=== PATIENT | female | born 1950 | race Caucasian/White ===

== ENCOUNTER → 2016-06-20 | Outpatient (CLI) | payer MEDICARE ==
--- NOTE | 2016-06-20 10:06 | CT ---
EXAMINATION TYPE: CT sinus wo con DATE OF EXAM: 06/20/2016 10:02 AM COMPARISON: 08/06/2014 HISTORY: Patient having sinus trouble CT DLP: 648.[address] of the paranasal sinuses was performed in the axial and coronal planes. Bone and soft tissue settings are submitted. The paranasal sinuses demonstrate normal aeration and development. Minimal mucosal thickening at the base of the right maxillary sinus. Remaining sinuses are well-aerat ed. Postoperative changes of medial right maxillary antrectomy. The osteal meatal units are patent bilaterally. The nasal septum is deviated from right to left. No bony destructive changes are seen within the field of view. IMPRESSION: 1. Minimal mucosal thickening at the base of the right maxillary sinus. 2. Nasal septal deviation from right to left.
== END | disposition home or self-care (01) ==
LOC: RADCTMAIN 09:24
PROVIDERS: ATTEND Otolaryngology
DX: J34.89 Other specified disorders of nose and nasal sinuses (principal); J34.2 Deviated nasal septum; J32.9 Chronic sinusitis, unspecified
CPT/HCPCS: 70486

== ENCOUNTER → 2017-10-15 | Outpatient (CLI) | payer MEDICARE ==
--- NOTE | 2017-10-15 18:47 | BD ---
EXAMINATION TYPE: Axial Bone Density DATE OF EXAM: 10/15/2017 COMPARISON: 06/21/2005 CLINICAL HISTORY: 67-year-old female postmenopausal screening without HRT Height: 65.5 IN Weight: 121 LBS FRAX RISK QUESTIONS: Secondary Osteoporosis: 3. Menopause before 45: YES AGE 45 Current Tobacco Use: YES RISK FACTORS HISTORY OF: Surgery to Spine: L2-L3 When: 20 YEARS AGO Active: YES Postmenopausal woman: AGE 45 MEDICATIONS: Additional Medications: XANAX EXAM MEASUREMENTS: PT STATES SHE HAD SURGERY ON HER DISC 20+ YEARS AGO Bone mineral densitometry was performed using the youwho System. Bone mineral density as measured about the Lumbar spine is: ----- L1-L4(G/cm2): 1.429 T Score Values are as follows: ----- L2: 1.5 ----- L3: 2.4 ----- L4: 3.0 ----- L1-L4: 2.1 Bone mineral density has: Decreased -20.6% since study of: 06/21/2005 Bone mineral density about the R hip (g/cm2): 0.870 Bone mineral density about the L hip (g/cm2): 0.874 T Score values are as follows: -----R Neck: -1.2 -----L Neck: -1.2 -----R Total: -1.5 -----L Total: -1.1 Bone mineral density has: Decreased -14.6% since study of: 07/24/2008 IMPRESSION: Osteopenia (T Score between -2.5 and -1). There is slightly increased risk of fracture and the patient may be considered for treatment. Re-Screen 2-5 years. NOTE: T-SCORE=SD OF THE YOUNG ADULT MEAN.
--- NOTE | 2017-10-17 13:40 | MM ---
Reason for exam: screening (asymptomatic). Last mammogram was performed 1 year and 9 months ago. History: Patient is postmenopausal. Family history of breast cancer in mother at age 57. Excisional biopsy of both breasts. Excisional biopsy of the left breast. Excisional biopsy of the right breast. Physical Findings: A clinical breast exam by your physician is recommended on an annual basis and results should be correlated with mammographic findings. MG 3D Screening Mammo W/Cad Bilateral CC and MLO view(s) were taken. Prior study comparison: January 07, 2016, bilateral MG screening mammo w CAD. August 06, 2014, bilateral MG screening mammo w CAD. The breast tissue is extremely dense which could obscure a lesion on mammography. No significant changes when compared with prior studies. ASSESSMENT: Negative, BI-RAD 1 RECOMMENDATION: Routine screening mammogram of both breasts in 1 year. Patient should continue monthly self breast exams. A negative report should not preclude additional follow up of suspicious palpable abnormalities.
== END | disposition home or self-care (01) ==
LOC: RADMAMWWP 15:25
PROVIDERS: ATTEND Family Medicine
DX: Z12.31 Encounter for screening mammogram for malignant neoplasm of breast (principal); M85.80 Other specified disorders of bone density and structure, unspecified site; Z78.0 Asymptomatic menopausal state
CPT/HCPCS: 77063; 77067; 77080

== ENCOUNTER 2018-10-04 19:39 | Emergency (ER) | payer MEDICARE ==
[2018-10-04 20:14] VITALS: TEMP 98.3
[2018-10-04] MEDS ORDERED: SODIUM CHLORIDE 0.9% 1,000 ML IV STA ×2 (20:56)
--- NOTE | 2018-10-04 21:00 | ED ---
Arrhythmia/Palpitations HPI - General Chief Complaint: Arrhythmia/Palpitations Stated Complaint: Palpitations,Headache Time Seen by Provider: 10/04/18 20:35 Source: patient, RN notes reviewed Mode of arrival: ambulatory Limitations: no limitations - History of Present Illness Initial Comments: This is a 68-year-old female who presents with complaints of dizziness headache neck supple area with low blood pressure and irregular heartbeat noted. She sta jody she has been eating much today because she was very busy she does get dizzy when she gets into an upright position. No recent fevers chills nausea vomiting sweats trauma or other symptoms. She did complain of generalized weakness the patient does state that she notes her last week she's been having episodes of what appears be extra heartbeats this is new for her. MD Complaint: "skipped beats" - Related Data Home Medications Medication Instructions Recorded Confirmed ALPRAZolam [Xanax] 0.5 mg PO DAILY PRN 07/27/14 10/04/18 Allergies Allergy/AdvReac Type Severity Reaction Status Date / Time codeine Allergy Rash/Hives Verified 10/04/18 21:02 Iodinated Contrast- Oral and Allergy Rash/Hives Verified 10/04/18 21:02 IV Dye [Iodinated Contrast Media - IV Dye] Sulfa (Sulfonamide Allergy Unknown Verified 10/04/18 21:02 Antibiotics) Review of Systems ROS Statement: Those systems with pertinent positive or pertinent negative responses have been documented in the HPI. ROS Other: All systems not noted in ROS Statement are negative. Past Medical History Past Medical History: No Reported History History of Any Multi-Drug Resistant Organisms: None Reported Past Surgical History: Back Surgery Additional Past Surgical History / Comment(s): breast biopsies Past Anesthesia/Blood Transfusion Reactions: No Reported Reaction Past Psychological History: Anxiety Smoking Status: Current every day smoker Past Alcohol Use History: Occasional Past Drug Use History: None Reported - Past Family History Sister(s) Family Medical History: Deep Vein Thrombosis (DVT), Pulmonary Embolus General Exam - General Exam Comments Initial Comments: This is a well-developed well-nourished awake alert oriented 3 female Limitations: no limitations General appearance: alert, in no apparent distress Head exam: Present: atraumatic, normocephalic, normal inspection Eye exam: Present: normal appearance, PERRL, EOMI. Absent: scleral icterus, conjunctival injection, periorbital swelling ENT exam: Present: mucous membranes dry Neck exam: Present: normal inspection, full ROM, other (No stridor JVD or br uits). Absent: tenderness, meningismus, lymphadenopathy Respiratory exam: Present: normal lung sounds bilaterally. Absent: respiratory distress, wheezes, rales, rhonchi, stridor Cardiovascular Exam: Present: regular rate, normal rhythm, normal heart sounds, other (Assist this is noted). Absent: systolic murmur, diastolic murmur, rubs, gallop, clicks GI/Abdominal exam: Present: soft, normal bowel sounds. Absent: distended, tenderness, guarding, rebound, rigid Extremities exam: Present: normal inspection, full ROM, normal capillary refill. Absent: tenderness, pedal edema, joint swelling, calf tenderness Back exam: Present: normal inspection Neurological exam: Present: alert, oriented X3, CN II-XII intact Psychiatric exam: Present: normal affect, normal mood Skin exam: Present: warm, dry, intact, normal color. Absent: rash Course Vital Signs 10/04/18 10/04/18 20:10 21:41 Temperature 98.3 F Pulse Rate 100 82 Respiratory 20 18 Rate Blood Pressure 98/58 106/78 O2 Sat by Pulse 97 94 L Oximetry - Reevaluation(s) Reevaluation #1: 10/04/18 23:26 Reevaluation patient reveals improvement. She still having occasional PVCs after long discussion with her she states this is been going on for a while. EKG Findings - EKG Results: EKG: interpreted by ALLISON, sinus rhythm (Normal sinus rhythm 87 appear interval 154 QRS duration 72 QT since QTC 380/466. Interval enlargement unifocal PVC noted) Procedures - Smoking Cessation Time Spent Discussing Smoking Cessation w/Patient (Minutes): 3 Patient Acknowledges Need for Cessation: Yes Medical Decision Making - Medical Decision Making I did discuss [employer] the patient and her patient will be discharged she was encouraged to quit smoking she does have unifocal PVCs no other significant findings at this time. She was somewhat dehydrated and feels improved after IV hydration. She is encouraged to follow-up with her doctor - Lab Data Result diagrams: 10/04/18 21:05 10/04/18 21:05 Lab Results 10/04/18 10/04/18 10/04/18 Range/Units 21:05 21:05 21:05 WBC 8.0 (3.8-10.6) k/uL RBC 4.42 (3.80-5.40) m/uL Hgb 13.6 (11.4-16.0) gm/dL Hct 41.2 (34.0-46.0) % MCV 93.3 (80.0-100.0) fL MCH 30.8 (25.0-35.0) pg MCHC 33.0 (31.0-37.0) g/dL RDW 13.0 (11.5-15.5) % Plt Count 220 (150-450) k/uL Neutrophils % 49 % Lymphocytes % 40 % Monocytes % 6 % Eosinophils % 3 % Basophils % 1 % Neutrophils # 3.9 (1.3-7.7) k/uL Lymphocytes # 3.2 (1.0-4.8) k/uL Monocytes # 0.5 (0-1.0) k/uL Eosinophils # 0.2 (0-0.7) k/uL Basophils # 0.1 (0-0.2) k/uL PT 10.6 (9.0-12.0) sec INR 1.0 (<1.2) APTT 24.3 (22.0-30.0) sec Sodium 138 (137-145) mmol/L Potassium 4.0 (3.5-5.1) mmol/L Chloride 108 H (98-107) mmol/L Carbon Dioxide 24 (22-30) mmol/L Anion Gap 6 mmol/L BUN 19 H (7-17) mg/dL Creatinine 0.80 (0.52-1.04) mg/dL Est GFR (CKD-EPI)AfAm 88 (>60 ml/min/1.73 sqM) Est GFR (CKD-EPI)NonAf 77 (>60 ml/min/1.73 sqM) Glucose 121 H (74-99) mg/dL Calcium 9.2 (8.4-10.2) mg/dL Magnesium 2.3 (1.6-2.3) mg/dL Total Bilirubin 0.5 (0.2-1.3) mg/dL AST 18 (14-36) U/L ALT 14 (9-52) U/L Alkaline Phosphatase 55 (38-126) U/L Creatine Kinase 105 (30-135) U/L Troponin I (0.000-0.034) ng/mL Total Protein 6.1 L (6.3-8.2) g/dL Albumin 3.8 (3.5-5.0) g/dL 10/04/18 Range/Units 21:05 WBC (3.8-10.6) k/uL RBC (3.80-5.40) m/uL Hgb (11.4-16.0) gm/dL Hct (34.0-46.0) % MCV (80.0-100.0) fL MCH (25.0-35.0) pg MCHC (31.0-37.0) g/dL RDW (11.5-15.5) % Plt Count (150-450) k/uL Neutrophils % % Lymphocytes % % Monocytes % % Eosinophils % % Basophils % % Neutrophils # (1.3-7.7) k/uL Lymphocytes # (1.0-4.8) k/uL Monocytes # (0-1.0) k/uL Eosinophils # (0-0.7) k/uL Basophils # (0-0.2) k/uL PT (9.0-12.0) sec INR (<1.2) APTT (22.0-30.0) sec Sodium (137-145) mmol/L Potassium (3.5-5.1) mmol/L Chloride (98-107) mmol/L Carbon Dioxide (22-30) mmol/L Anion Gap mmol/L BUN (7-17) mg/dL Creatinine (0.52-1.04) mg/dL Est GFR (CKD-EPI)AfAm (>60 ml/min/1.73 sqM) Est GFR (CKD-EPI)NonAf (>60 ml/min/1.73 sqM) Glucose (74-99) mg/dL Calcium (8.4-10.2) mg/dL Magnesium (1.6-2.3) mg/dL Total Bilirubin (0.2-1.3) mg/dL AST (14-36) U/L ALT (9-52) U/L Alkaline Phosphatase (38-126) U/L Creatine Kinase (30-135) U/L Troponin I <0.012 (0.000-0.034) ng/mL Total Protein (6.3-8.2) g/dL Albumin (3.5-5.0) g/dL - Radiology Data Radiology results: report reviewed (Imaging reviewed no acute findings), image reviewed Disposition Clinical Impression: Palpitations, PVCs (premature ventricular contractions), Dehydration, Smoking Disposition: HOME SELF-CARE Condition: Good Instructions (If sedation given, give patient instructions): Heart Palpitations (ED), Premature Ventricular Contractions (ED), Dehydration (ED), How to Stop Smoking (ED) Is patient prescribed a controlled substance at d/c from ED?: No Referrals: Ashly Leon III, MD [Primary Care Provider] - 1-2 days
[2018-10-04 21:44] LABS: Basophils # (A) 0.1 k/uL (0-0.2); Basophils % (A) 1 %; Eosinophils # (A) 0.2 k/uL (0-0.7); Eosinophils % (A) 3 %; HCT 41.2 % (34.0-46.0); HGB 13.6 gm/dL (11.4-16.0); Lymphocytes # (A) 3.2 k/uL (1.0-4.8); Lymphocytes % (A) 40 %; MCH 30.8 pg (25.0-35.0); MCV 93.3 fL (80.0-100.0); Mean Platelet Volume 7.3; Monocytes # (A) 0.5 k/uL (0-1.0); Monocytes % (A) 6 %; Neutrophils # (A) 3.9 k/uL (1.3-7.7); Neutrophils % (A) 49 %; Platelet Count 220 k/uL (150-450); RBC 4.42 m/uL (3.80-5.40)
[2018-10-04 21:46] VITALS: PULSE 82; RESP 18
[2018-10-04 21:54] LABS: Partial Thromboplastin Time 24.3 sec (22.0-30.0); Prothrombin Time 10.6 sec (9.0-12.0)
[2018-10-04 22:35] LABS: Albumin 3.8 g/dL (3.5-5.0); Calcium 9.2 mg/dL (8.4-10.2); Magnesium 2.3 mg/dL (1.6-2.3); Total Bilirubin 0.5 mg/dL (0.2-1.3); Total Protein 6.1 g/dL (6.3-8.2)
--- NOTE | 2018-10-04 22:36 | CT ---
EXAMINATION: CT brain wo con DATE AND TIME: 10/04/2018 9:28 PM CLINICAL INDICATION: PHH; Pain TECHNIQUE: Standard departmental protocol.; 1232.4; COMPARISON: None. FINDINGS: The calvarium is intact. There is no intracranial hemorrhage. There is no intracranial mass or mass effect. No definite new intra-axial or extra-axial attenuation defect. Bilateral levy radiata and centrum semiovale low attenuation is noted, entirely nonspecific deep wh ite matter change. The paranasal sinuses, middle ear cavities, and mastoid sinus air cells are clear. The orbits are unremarkable. IMPRESSION: No definite acute process.
--- NOTE | 2018-10-04 22:50 | XR ---
EXAMINATION: XR chest 3V DATE AND TIME: 10/04/2018 9:29 PM CLINICAL INDICATION: PHH; dysrhythmia TECHNIQUE: 2 frontal views and one lateral view COMPARISON: 12/30/2015 FINDINGS: The lungs are clear. The pleural spaces are negative. The cardiac silhouette is not enlarged. The skeletal structures and soft tissues are negative for acute findings. IMPRESSION: NO ACUTE PROCESS.
[2018-10-04 23:48] VITALS: BP 116/82
== END 2018-10-04 23:52 | disposition home or self-care (01) ==
LOC: EC 19:39
DX: E86.0 Dehydration (principal); I49.3 Ventricular premature depolarization; Z71.6 Tobacco abuse counseling; R53.1 Weakness; F17.200 Nicotine dependence, unspecified, uncomplicated; Z88.2 Allergy status to sulfonamides; Z88.5 Allergy status to narcotic agent; Z91.041 Radiographic dye allergy status
CPT/HCPCS: 36415; 70450; 71046; 80053; 82550; 83735; 84484; 85025; 85610; 85730; 93005; 96360; 96361; 99285; 99406

== ENCOUNTER → 2018-10-22 | Outpatient (CLI) | payer MEDICARE ==
--- NOTE | 2018-10-22 13:03 | US ---
EXAMINATION TYPE: US carotid duplex BILAT DATE OF EXAM: 10/22/2018 COMPARISON: NONE CLINICAL HISTORY: I49.3 Ventricular premature depolarization. Racing heart, chest discomfort EXAM MEASUREMENTS: RIGHT: Peak Systolic Velocity (PSV) cm/sec ----- Right CCA: 67.9 ----- Right ICA: 95.4 ----- Right ECA: 65.5 ICA/CCA ratio: 1.4 RIGHT: End Diastole cm/sec ----- Right CCA: 31.6 ----- Right ICA: 39.2 ----- Right ECA: 14.3 LEFT: Peak Systolic Velocity (PSV) cm/sec ----- Left CCA: 65.1 ----- Left ICA: 80.5 ----- Left ECA: 75.1 ICA/CCA ratio: 1.2 LEFT: End Diastole cm/sec ----- Left CCA: 26.6 ----- Left ICA: 37.0 ----- Left ECA: 16.6 VERTEBRALS (direction of flow): Right Vertebral: Antegrade Left Vertebral: Antegrade Rhythm: Normal Bilateral intimal thickening, minimal plaque bilateral bulb, no elevated velocities, no significant s tenosis. IMPRESSION: Mild degree of grayscale atheromatous plaquing with no sonographically evident hemodynam ically significant stenosis within either visualized carotid arterial system. Criteria for Assigning % of Stenosis / Diameter reduction (Estimation based on the indirect measurements of the internal carotid artery velocities (ICA PSV). 1. Normal (no stenosis)=ICA PSV < 125 cm/s: ratio < 2.0: ICA EDV<40 cm/s. 2. Less than 50% stenosis=ICA PSV < 125 cm/s: ratio < 2.0: ICA EDV<40 cm/s. 3. 50 to 69% stenosis=ICA PSV of 125 to 230 cm/s: ration 2.0 ? 4.0: ICA EDV 40-100 cm/s. 4. Greater than 70% stenosis to near occlusion= ICA PSV > 230 cm/s: ratio > 4.0: ICA EDV > 100 cm/s. 5. Near occlusion= ICA PSV velocities may be low or undetectable: variable ratio and ICA EDV. 6. Total occlusion=unable to detect flow.
--- NOTE | 2018-10-23 13:33 | EST ---
EXERCISE STRESS DATE OF SERVICE: 10/22/2018 AGE: 68 SEX: Female HT: 66 WT: 128 PROTOCOL: Nelson STAGE: III DURATION OF EXERCISE: 7 minutes HEART RATE REST: 85 BLOOD PRESSURE REST: 109/71 MAXIMUM HEART RATE ACHIEVED: 153 MAXIMUM BLOOD PRESSURE: 191/71 85% MPHR: 130 100% MPHR: 153 METS: 8.5 INDICATIONS: CLINICAL INFORMATION: Baseline heart rate 85 beats per minute. Baseline blood pressure 109/71 mmHg. Baseline 12-lead ECG shows normal sinus rhythm, normal cardiac intervals, normal ST segments. Patient exercised on a Nelson protocol for 7 minutes achieving a peak heart rate of 153 beats per minute. Normal blood pressure response to exercise. Occasional PVCs and ventricular couplets and ventricular triplet was noted. There was no definite ECG evidence for ischemia. IMPRESSION: Average exercise capacity with nonsustained ventricular arrhythmias, but no ECG evidence for ischemia. MMODL / IJN: [id number] /
== END | disposition home or self-care (01) ==
LOC: RADNMMAIN 10:42
PROVIDERS: ATTEND Family Medicine
DX: I67.2 Cerebral atherosclerosis (principal); I49.3 Ventricular premature depolarization
CPT/HCPCS: 93017; 93880

== ENCOUNTER → 2018-10-29 | Outpatient (CLI) | payer MEDICARE ==
--- NOTE | 2018-10-30 10:43 | ECHOF ---
Referral Reason:I49.3 Ventricular premature depolarization MEASUREMENTS -------- HEIGHT: 167.6 cm WEIGHT: 57.6 kg BP: 105/54 RVIDd: 2.5 cm (< 3.3) IVSd: 0.8 cm (0.6 - 1.1) LVIDd: 3.8 cm (3.9 - 5.3) LVPWd: 0.8 cm (0.6 - 1.1) IVSs: 1.5 cm LVIDs: 2.4 cm LVPWs: 1.6 cm LA Diam: 2.9 cm (2.7 - 3.8) LAESV Index (A-L): 16.71 ml/m Ao Diam: 2.9 cm (2.0 - 3.7) AV Cusp: 1.4 cm (1.5 - 2.6) MV EXCURSION: 15.228 mm (> 18.000) MV EF SLOPE: 63 mm/s (70 - 150) EPSS: 0.9 cm MV E Prasanna: 0.72 m/s MV DecT: 248 ms MV A Prasanna: 0.76 m/s MV E/A Ratio: 0.95 RAP: 5.00 mmHg RVSP: 23.85 mmHg FINDINGS -------- Sinus rhythm. This was a technically good study. The left ventricular size is normal. Left ventricular wall thickness is normal. Overall left vent ricular systolic function is normal with, an EF between 60 - 65 %. The right ventricle is normal in size. Normal LA size by volume 22+/-6 ml/m2. The right atrium is normal in size. Aneurysmal Interatrial septum. The aortic valve is trileaflet and appears structurally normal. The mitral valve leaflets are mildly thickened. There is trace mitral regurgitation. Mild tricuspid regurgitation present. Right ventricular systolic pressure is normal at < 35 mmHg. Trace/mild (physiologic) pulmonic regurgitation. The aortic root size is normal. Normal inferior vena cava with normal inspiratory collapse consistent with estimated right atrial pre ssure of 5 mmHg. There is no pericardial effusion. CONCLUSIONS -------- 1. Sinus rhythm. 2. This was a technically good study. 3. The left ventricular size is normal. 4. Left ventricular wall thickness is normal. 5. Overall left ventricular systolic function is normal with, an EF between 60 - 65 %. 6. The right ventricle is normal in size. 7. Normal LA size by volume 22+/-6 ml/m2. 8. The right atrium is normal in size. 9. Aneurysmal Interatrial septum. 10. The aortic valve is trileaflet and appears structurally normal. 11. The mitral valve leaflets are mildly thickened. 12. There is trace mitral regurgitation. 13. Mild tricuspid regurgitation present. 14. Right ventricular systolic pressure is normal at < 35 mmHg. 15. Trace/mild (physiologic) pulmonic regurgitation. 16. The aortic root size is normal. 17. Normal inferior vena cava with normal inspiratory collapse consistent with estimated right atrial pressure of 5 mmHg. 18. There is no pericardial effusion. SCIENCE INTERPRETER: Rosa Cotton RDCS
== END | disposition home or self-care (01) ==
LOC: RADECHMAIN 16:28
PROVIDERS: ATTEND Family Medicine
DX: I07.1 Rheumatic tricuspid insufficiency (principal); I37.1 Nonrheumatic pulmonary valve insufficiency
CPT/HCPCS: 93306

== ENCOUNTER → 2019-02-05 | Outpatient (CLI) | payer MEDICARE ==
--- NOTE | 2019-02-05 15:56 | CTL ---
EXAMINATION TYPE: CT Low Dose Lung DATE OF EXAM ORDERED: 02/05/2019 HISTORY: Personal history of tobacco use. Lung cancer screening CT DLP: [address] CTDI: 1.72 mGy Automated exposure control for dose reduction was used. SCREENING VISIT: Follow-up COMPARISON: 01/02/2017 TECHNIQUE: Low dose computed tomography scan was performed through the chest at 1 mm thick sections a nd reconstructed images in the coronal plane at [address] DIAGNOSTIC QUALITY: Limited, but interpretable FINDINGS: LUNG NODULES: None. There appears to be some mild apical scarring present. LUNGS: COPD: Severity: Mild. Some peribronchial thickening may be present. Correlate for chronic bronchitis. Fibrosis: Severity: None Lymph nodes: No enlarged lymphadenopathy Other findings: None RIGHT PLEURAL SPACE: Effusion: None Calcification: None Thickening: None Pneumothorax: None LEFT PLEURAL SPACE: Effusion: None Calcification: None Thickening: None Pneumothorax: None HEART: Heart Size: Normal Coronary calcification: Moderate Pericardial effusion: None OTHER FINDINGS: Upper abdomen: Right lobe hepatic cyst is present. Bony thorax: Normal Supraclavicular region: Right lobe thyroid appears old but similar in appearance to the prior study. Thyroid is somewhat heterogenous. This could be evaluated with ultrasound. Other: Ascending thoracic aorta at the level the main pulmonary artery measures 3.6 cm. The main pul monary artery at the bifurcation measures 2.4 cm. IMPRESSION: 1. No suspicious changes to suggest neoplasm. 2. Enlarged heterogenous thyroid. This could be evaluated with thyroid ultrasound. 3. Suggestion of mild chronic bronchitis. FOLLOW UP CT CHEST RECOMMENDATION: Follow-up low-dose CT chest [address] LUNG RAD: 2
== END | disposition home or self-care (01) ==
LOC: RADCTMAIN 14:39
PROVIDERS: ATTEND Family Medicine
DX: Z12.2 Encounter for screening for malignant neoplasm of respiratory organs (principal); F17.210 Nicotine dependence, cigarettes, uncomplicated

== ENCOUNTER → 2019-02-28 | Outpatient (CLI) | payer MEDICARE ==
--- NOTE | 2019-03-01 12:27 | US ---
EXAMINATION TYPE: US thyroid st tissue head/neck DATE OF EXAM: 02/28/2019 COMPARISON: NONE CLINICAL HISTORY: E04.1 Thyroid nodule. Thyroid nodule GLAND SIZE: Right Lobe: 5.2 x 2.6 x 2.4 cm Overall Parenchyma: heterogenous Left Lobe: 4.0 x 1.3 x 1.5 cm Overall Parenchyma: homogeneous Isthmus Thickness: .4 cm NODULES RIGHT: # of nodules measured on right: 1 1. 3.2 X 2.2 x 2.6 cm solid nodule at the mid pole with well-defined margins; . This nodule is wid er than tall and shows intranodular vascularity. Prior size: No prior LEFT: # of nodules measured on left: 1 1. 1.4 X 1.1 x 1.2 cm hypoechoic solid nodule at the lower pole with well-defined margins; . This nodule is wider than tall and shows intranodular vascularity. Prior size: No prior ISTHMUS: # of nodules measured in the isthmus: 0 Bilateral neck scanned, no evidence of lymphadenopathy. IMPRESSION: Bilateral thyroid nodules, dominant nodule mid to lower pole right lobe of thyroid gland is 3.2 cm
== END ==
LOC: RADUSWWP 16:25
PROVIDERS: ATTEND Family Medicine
DX: E04.2 Nontoxic multinodular goiter (principal); R22.0 Localized swelling, mass and lump, head
CPT/HCPCS: 76536

== ENCOUNTER → 2019-03-17 | Outpatient (CLI) | payer MEDICARE ==
--- NOTE | 2019-03-19 10:18 | MM ---
Reason for exam: screening (asymptomatic). Last mammogram was performed 1 year and 5 months ago. History: Patient is postmenopausal. Family history of breast cancer in mother at age 57. Excisional biopsy of both breasts. Excisional biopsy of the left breast. Excisional biopsy of the right breast. Physical Findings: A clinical breast exam by your physician is recommended on an annual basis and results should be correlated with mammographic findings. MG 3D Screening Mammo W/Cad Bilateral CC and MLO view(s) were taken. Prior study comparison: October 15, 2017, bilateral MG 3d screening mammo w/cad. January 07, 2016, bilateral MG screening mammo w CAD. The breast tissue is extremely dense which could obscure a lesion on mammography. No significant changes when compared with prior studies. ASSESSMENT: Benign, BI-RAD 2 RECOMMENDATION: Routine screening mammogram of both breasts in 1 year.
== END | disposition home or self-care (01) ==
LOC: RADMAMWWP 13:29
PROVIDERS: ATTEND Family Medicine
DX: Z12.31 Encounter for screening mammogram for malignant neoplasm of breast (principal)
CPT/HCPCS: 77063; 77067

== ENCOUNTER 2019-04-09 08:32 | Day surgery (SDC) | payer MEDICARE ==
[2019-04-04 14:07] VITALS: BMI 20.6
[~2019-04-09 08:32] MED LIST: LACTATED RINGERS 1,000 ML IV SCH; LIDOCAINE 1% 20 ML VIAL (10MG/ML) FOR IV START INTRADERMA PRN
[2019-04-09 09:20] VITALS: TEMP 97.8
[2019-04-09] MEDS ORDERED: MIDAZOLAM 2 MG/2 ML VIAL IVP ONE (09:35)
[2019-04-09] MEDS ORDERED: PROPOFOL 10 MG/ML 20 ML VIAL IV ONE (09:42)
[2019-04-09] MEDS ORDERED: LIDOCAINE 1% INJ 10MG/ML (20 ML MDV) ONE (09:42)
[2019-04-09] MEDS ORDERED: ONDANSETRON 4 MG/2 ML VIAL ONE (09:42)
--- NOTE | 2019-04-09 10:11 | P.PCN ---
Date of Procedure: 04/09/19 Procedure(s) Performed: BRIEF HISTORY: Patient is a 69-year-old pleasant female scheduled for an elective colonoscopy as a part of evaluation of positive cologuard. Last colonoscopy was 12 years ago PROCEDURE PERFORMED: Colonoscopy with snare polypectomy PREOPERATIVE DIAGNOSIS: Positive cologuard. IV sedation per Anesthesia. PROCEDURE: After informed consent was obtained, the patient, was brought into the endoscopy unit. IV sedation was administered by Anesthesia under continuous monitoring. Digital rectal examination was normal. Initially the Olympus CF-160 flexible video colonoscope was then inserted in the rectum, gradually advanced into the cecum without any difficulty. Careful examination was performed as the scope was gradually being withdrawn. Ileocecal valve and the appendiceal orifice were visualized and appeared normal. Prep was excellent. Mucosa of the cecum, ascending colon, transverse colon, descending colon, sigmoid colon, and rectum appeared normal. In the proximal rectum there was a 1 cm polyp that was removed by snare polypectomy. Scattered left-sided diverticulosis seen. Retroflexion was performed in the rectum and no lesions were seen. The patient tolerated the procedure well. IMPRESSION: 1 cm proximal rectal polyp status post polypectomy Scattered left sided diverticulosis RECOMMENDATIONS: Findings of this examination were discussed with the patient the lesser family. She was advised to follow with the biopsy results. If the biopsy shows an adenoma she can have a repeat colonoscopy in 3-5 years.
[2019-04-09 10:14] VITALS: RESP 16
[2019-04-09 10:27] VITALS: BP 131/87; PULSE 83
== END 2019-04-09 10:44 | disposition home or self-care (01) ==
LOC: ORWHC2ENDO 08:32
PROVIDERS: ATTEND Internal Medicine Gastroenterology
DX: D12.8 Benign neoplasm of rectum (principal); K57.30 Diverticulosis of large intestine without perforation or abscess without bleeding; E78.5 Hyperlipidemia, unspecified; F41.9 Anxiety disorder, unspecified; Z79.82 Long term (current) use of aspirin; Z79.899 Other long term (current) drug therapy; Z88.5 Allergy status to narcotic agent; Z88.2 Allergy status to sulfonamides; Z91.041 Radiographic dye allergy status
CPT/HCPCS: 88305; 45385; J2250; J2405; J2001; J2704

== ENCOUNTER 2019-05-22 09:31 | Day surgery (SDC) | payer MEDICARE ==
[2019-05-22 10:37] VITALS: TEMP 98.2
--- NOTE | 2019-05-22 11:40 | US ---
ULTRASOUND GUIDED FNA THYROID BIOPSY: CLINICAL HISTORY: Request for FNA of right and left thyroid nodule FINDINGS: The procedure was explained to the patient. The risks, complications, benefits and alternatives were discussed and any questions were answered. Informed consent was obtained. Patient was placed supin e on the ultrasound table and prepped and draped in the usual sterile fashion. Utilizing a 25 gauge needle, five passes were made into the requested right and left thyroid nodules. Patient was stable throughout the procedure. Pathology is pending. All elements of maximal barrier technique were utilized. IMPRESSION: 1. Successful ultrasound guided FNA thyroid biopsy.
[2019-05-22 11:50] VITALS: RESP 14
[2019-05-22 11:52] VITALS: BP 115/76; PULSE 80
== END 2019-05-22 11:30 | disposition home or self-care (01) ==
LOC: RADPROMAIN 09:31
PROVIDERS: ATTEND Family Medicine
DX: E04.2 Nontoxic multinodular goiter (principal)
CPT/HCPCS: 10005; 10006; 88173; 88305

== ENCOUNTER → 2020-07-22 | Outpatient (CLI) | payer MEDICARE ==
[2020-07-22 21:05] LABS: T4, Free (Free Thyroxine) 0.9 ng/dL (0.80-1.80)
== END | disposition home or self-care (01) ==
LOC: LABWHC1 10:41
PROVIDERS: ATTEND Otolaryngology
DX: E04.2 Nontoxic multinodular goiter (principal)
CPT/HCPCS: 36415; 84439; 84443; 86376

== ENCOUNTER 2020-07-27 16:31 | Observation (INO) | payer MEDICARE ==
[2020-07-27] MEDS ORDERED: SODIUM CHLORIDE 0.9% 1,000 ML IV STA ×2 (16:53)
--- NOTE | 2020-07-27 17:02 | ED ---
Arrhythmia/Palpitations HPI - General Chief Complaint: Arrhythmia/Palpitations Stated Complaint: AFib Time Seen by Provider: 07/27/20 16:43 Source: patient, RN notes reviewed, old records reviewed Mode of arrival: wheelchair Limitations: no limitations - History of Present Illness Initial Comments: This is a 17-year-old female history of a history of hernia history of a thyroid nodule who states she had the onset yesterday of intermittent episodes of palpitations and some vague discomfort in her chest area. She's noted have a heart rate up in the 170s in triage. No fevers chills nausea vomiting sweats cough or phlegm production she does believe she's not been drinking enough fluids. MD Complaint: rapid heart beat, palpitations - Related Data Home Medications Medication Instructions Recorded Confirmed ALPRAZolam [Xanax] 0.5 mg PO DAILY PRN 07/27/20 07/27/20 Aspirin [Adult Low Dose Aspirin EC] 81 mg PO DAILY@1800 07/27/20 07/27/20 Atorvastatin [Lipitor] 20 mg PO DAILY@1800 07/27/20 07/27/20 Metoprolol Succinate [Toprol XL] 25 mg PO DAILY@1800 07/27/20 07/27/20 Allergies Allergy/AdvReac Type Severity Reaction Status Date / Time cat dander Allergy Unknown Verified 07/27/20 16:59 codeine Allergy Rash/Hives Verified 07/27/20 16:59 Iodinated Contrast Media Allergy Rash/Hives Verified 07/27/20 16:59 [Iodinated Contrast Media - IV Dye] milk Allergy Unknown Verified 07/27/20 16:59 Sulfa (Sulfonamide Allergy Unknown Verified 07/27/20 16:59 Antibiotics) Review of Systems ROS Statement: Those systems with pertinent positive or pertinent negative responses have been documented in the HPI. ROS Other: All systems not noted in ROS Statement are negative. Past Medical History Past Medical History: Atrial Fibrillation, Hyperlipidemia, Thyroid Disorder Additional Past Medical History / Comment(s): "extra heart beat", irregular bowel movements, hemorrhoids, "abdominal pain in ovary area" History of Any Multi-Drug Resistant Organisms: None Reported Past Surgical History: Back Surgery, Breast Surgery, Tonsillectomy Additional Past Surgical History / Comment(s): yeyo breast biopsies, 'cysts removed from both breasts", sinus surgery. scheduled for thyroid biopsy May 2019 Past Anesthesia/Blood Transfusion Reactions: No Reported Reaction Past Psychological History: Anxiety Smoking Status: Current every day smoker Past Alcohol Use History: Occasional Past Drug Use History: None Reported - Past Family History Mother Family Medical History: Cancer Sister(s) Family Medical History: Deep Vein Thrombosis (DVT), Pulmonary Embolus General Exam - General Exam Comments Initial Comments: This is a well-developed well-nourished awake alert oriented 3 female Limitations: no limitations General appearance: alert, anxious Head exam: Present: atraumatic, normocephalic, normal inspection Eye exam: Present: normal appearance, PERRL, EOMI. Absent: scleral icterus, conjunctival injection, periorbital swelling ENT exam: Present: mucous membranes dry Neck exam: Present: normal inspection, full ROM, other (No stridor JVD or bruits). Absent: tenderness, meningismus, lymphadenopathy Respiratory exam: Present: normal lung sounds bilaterally. Absent: respiratory distress, wheezes, rales, rhonchi, stridor Cardiovascular Exam: Present: normal rhythm, tachycardia, normal heart sounds, other (Occasional extrasystoles). Absent: systolic murmur, diastolic murmur, rubs, gallop, clicks GI/Abdominal exam: Present: soft, normal bowel sounds. Absent: distended, tenderness, guarding, rebound, rigid Extremities exam: Present: normal inspection, full ROM, normal capillary refill. Absent: tenderness, pedal edema, joint swelling, calf tenderness Back exam: Present: normal inspection Neurological exam: Present: alert, oriented X3, CN II-XII intact Psychiatric exam: Present: normal affect, normal mood Skin exam: Present: warm, dry, intact, normal color. Absent: rash Course Vital Signs 07/27/20 07/27/20 07/27/20 16:34 16:57 16:59 Temperature 98.1 F Pulse Rate 171 H 141 H Pulse Rate [ 112 H Apical] Respiratory 20 20 Rate Blood Pressure 115/77 107/80 O2 Sat by Pulse 97 95 Oximetry 07/27/20 07/27/20 18:10 19:17 Temperature Pulse Rate 92 90 Pulse Rate [ Apical] Respiratory 20 22 Rate Blood Pressure 108/79 112/98 O2 Sat by Pulse 95 96 Oximetry - Reevaluation(s) Reevaluation #1: 07/27/20 19:21 The patient did respond to a vagal maneuver when her heart rate accelerated into the 160s during my exam. EKG Findings - EKG Results: EKG: interpreted by ALLISON (Sinus tachycardia with occasional PVCs rate 603968 QRS duration 72 QT since QTC 332/[address]-T wave configuration this was compared with an EKG dated 10/04/18) Medical Decision Making - Medical Decision Making This was evaluated in treated using IV fluids as well as vagal maneuvers to slow her heart rate down. She still had some tachycardic episodes even after IV hydration. I did discuss Pfizer her and her she will be admitted to Dr. Vasquez service cardiology evaluation. Currently she is hemodynamically stable. - Lab Data Result diagrams: 07/27/20 17:02 07/27/20 17:02 Lab Results 07/27/20 07/27/20 07/27/20 Range/Units 17:02 17:02 17:02 WBC 8.7 (3.8-10.6) k/uL RBC 4.86 (3.80-5.40) m/uL Hgb 15.0 (11.4-16.0) gm/dL Hct 45.6 (34.0-46.0) % MCV 93.8 (80.0-100.0) fL MCH 30.8 (25.0-35.0) pg MCHC 32.8 (31.0-37.0) g/dL RDW 13.2 (11.5-15.5) % Plt Count 249 (150-450) k/uL MPV 7.6 Neutrophils % 49 % Lymphocytes % 41 % Monocytes % 5 % Eosinophils % 3 % Basophils % 1 % Neutrophils # 4.2 (1.3-7.7) k/uL Lymphocytes # 3.5 (1.0-4.8) k/uL Monocytes # 0.4 (0-1.0) k/uL Eosinophils # 0.2 (0-0.7) k/uL Basophils # 0.1 (0-0.2) k/uL PT 10.5 (9.0-12.0) sec INR 1.0 (<1.2) APTT 23.5 (22.0-30.0) sec D-Dimer 0.27 (<0.60) mg/L FEU Sodium 137 (137-145) mmol/L Potassium 3.9 (3.5-5.1) mmol/L Chloride 107 (98-107) mmol/L Carbon Dioxide 23 (22-30) mmol/L Anion Gap 7 mmol/L BUN 17 (7-17) mg/dL Creatinine 0.52 (0.52-1.04) mg/dL Est GFR (CKD-EPI)AfAm >90 (>60 ml/min/1.73 sqM) Est GFR (CKD-EPI)NonAf >90 (>60 ml/min/1.73 sqM) Glucose 84 (74-99) mg/dL Calcium 9.7 (8.4-10.2) mg/dL Magnesium 2.1 (1.6-2.3) mg/dL Total Bilirubin 0.4 (0.2-1.3) mg/dL AST 25 (14-36) U/L ALT 18 (4-34) U/L Alkaline Phosphatase 63 (38-126) U/L Creatine Kinase 104 (30-135) U/L Troponin I (0.000-0.034) ng/mL Total Protein 6.6 (6.3-8.2) g/dL Albumin 4.2 (3.5-5.0) g/dL TSH 2.640 (0.465-4.680) mIU/L 07/27/20 Range/Units 17:02 WBC (3.8-10.6) k/uL RBC (3.80-5.40) m/uL Hgb (11.4-16.0) gm/dL Hct (34.0-46.0) % MCV (80.0-100.0) fL MCH (25.0-35.0) pg MCHC (31.0-37.0) g/dL RDW (11.5-15.5) % Plt Count (150-450) k/uL MPV Neutrophils % % Lymphocytes % % Monocytes % % Eosinophils % % Basophils % % Neutrophils # (1.3-7.7) k/uL Lymphocytes # (1.0-4.8) k/uL Monocytes # (0-1.0) k/uL Eosinophils # (0-0.7) k/uL Basophils # (0-0.2) k/uL PT (9.0-12.0) sec INR (<1.2) APTT (22.0-30.0) sec D-Dimer (<0.60) mg/L FEU Sodium (137-145) mmol/L Potassium (3.5-5.1) mmol/L Chloride (98-107) mmol/L Carbon Dioxide (22-30) mmol/L Anion Gap mmol/L BUN (7-17) mg/dL Creatinine (0.52-1.04) mg/dL Est GFR (CKD-EPI)AfAm (>60 ml/min/1.73 sqM) Est GFR (CKD-EPI)NonAf (>60 ml/min/1.73 sqM) Glucose (74-99) mg/dL Calcium (8.4-10.2) mg/dL Magnesium (1.6-2.3) mg/dL Total Bilirubin (0.2-1.3) mg/dL AST (14-36) U/L ALT (4-34) U/L Alkaline Phosphatase (38-126) U/L Creatine Kinase (30-135) U/L Troponin I <0.012 (0.000-0.034) ng/mL Total Protein (6.3-8.2) g/dL Albumin (3.5-5.0) g/dL TSH (0.465-4.680) mIU/L - Radiology Data Radiology results: report reviewed (Review findings), image reviewed Disposition Clinical Impression: Tachycardia, Dehydration Disposition: ADMITTED IP TO THIS [facility] Condition: Stable Referrals: Ashly Leon III, MD [Primary Care Provider] - 1-2 days
[2020-07-27 17:09] LABS: Basophils # (A) 0.1 k/uL (0-0.2); Basophils % (A) 1 %; Eosinophils # (A) 0.2 k/uL (0-0.7); Eosinophils % (A) 3 %; HCT 45.6 % (34.0-46.0); Lymphocytes # (A) 3.5 k/uL (1.0-4.8); Lymphocytes % (A) 41 %; MCH 30.8 pg (25.0-35.0); MCHC 32.8 g/dL (31.0-37.0); MCV 93.8 fL (80.0-100.0); Mean Platelet Volume 7.6; Monocytes # (A) 0.4 k/uL (0-1.0); Monocytes % (A) 5 %; Neutrophils # (A) 4.2 k/uL (1.3-7.7); Neutrophils % (A) 49 %; Platelet Count 249 k/uL (150-450); RBC 4.86 m/uL (3.80-5.40); RDW 13.2 % (11.5-15.5); WBC 8.7 k/uL (3.8-10.6)
[2020-07-27 17:23] LABS: ALT 18 U/L (4-34); AST 25 U/L (14-36); African American GFR (CKD) >90 (>60 ml/min/1.73 sqM); Albumin 4.2 g/dL (3.5-5.0); Alkaline Phosphatase 63 U/L (38-126); Anion Gap 7 mmol/L; Blood Urea Nitrogen 17 mg/dL (7-17); Calcium 9.7 mg/dL (8.4-10.2); Carbon Dioxide 23 mmol/L (22-30); Chloride 107 mmol/L (98-107); Creatine Kinase 104 U/L (30-135); Glucose 84 mg/dL (74-99); Magnesium 2.1 mg/dL (1.6-2.3); Non-African American GFR(CKD) >90 (>60 ml/min/1.73 sqM); Potassium 3.9 mmol/L (3.5-5.1); Sodium 137 mmol/L (137-145); Total Bilirubin 0.4 mg/dL (0.2-1.3); Total Protein 6.6 g/dL (6.3-8.2)
[2020-07-27 17:25] LABS: Partial Thromboplastin Time 23.5 sec (22.0-30.0); Prothrombin Time 10.5 sec (9.0-12.0)
--- NOTE | 2020-07-27 18:52 | XR ---
EXAMINATION TYPE: XR chest 2V DATE OF EXAM: 07/27/2020 COMPARISON: 10/04/2018 HISTORY: Intermittent palpitations and dysrhythmia. TECHNIQUE: Frontal and lateral views of the chest are obtained. FINDINGS: There is no focal air space opacity, pleural effusion, or pneumothorax seen. The cardiac silhouette size is within normal limits. The osseous structures are intact. IMPRESSION: No acute cardiopulmonary process.
[2020-07-27] MEDS ORDERED: ALPRAZolam 0.5 MG TAB PO PRN (19:37)
[2020-07-27] MEDS ORDERED: ASPIRIN 81 MG PO STA (20:29)
[2020-07-27] MEDS ORDERED: ATORVASTATIN 20 MG TAB PO STA (20:30)
[2020-07-27] MEDS ORDERED: METOPROLOL SUCCINATE (ER) 25 MG TAB.ER.24H PO STA (20:31)
[2020-07-27] MEDS ORDERED: NALOXONE 0.4 MG/ML 1 ML VIAL IV PRN (20:41)
[2020-07-27] MEDS ORDERED: SODIUM CHLORIDE 0.9% 1,000 ML IV SCH (20:45)
[2020-07-27 21:03] VITALS: TEMP 97.5
--- NOTE | 2020-07-28 08:45 | P.HPIM ---
History of Present Illness This is a pleasant 70 years old female with past medical history of atrial fibrillation, hyperlipidemia, hypothyroidism, back surgery, nicotine dependence. She is a patient of Dr. Leon and she follows up with Dr. eNville for A. fib but she is not on a blood thinner. She came to the emergency room yesterday because she felt funny withmedication and wedged to check her heart rate had noticed itself was fluctuation between 40 and 230 her blood pressure measurement machine she has at home however she said that her blood pressure was good She has mild headache but denies weakness or numbness. No chest pain or dyspnea or coughing. No nausea vomiting. No diarrhea. No fever She smokes about 1.5 pack per day, she consults to quit and she agrees but she declines nicotine patch She denies alcohol or illicit drugs. Also patient follows up with Dr. Nunes for neck right nodule and she is scheduled for biopsy as an outpatient in 2-3 weeks Vitals are stable and unremarkable, heart rate was elevated on admission 171, 1 41, currently heart rate is 83-85. Blood pressure 100/70. Labs are unremarkable including CBC, BMP, liver enzymes, INR. D-dimer is negative at 0.27. Serial troponin negative less than 0.0123. TSH is normal at 2.6. Coronavirus not detected Chest x-ray: No acute process by Radiologist. EKG showing sinus tachycardia with echo additional PVC, rate 112, QTC 453. No significant ST-T changes Dr. Velazquez ER attending admitted the patient for cardiology evaluation Review of Systems CONSTITUTIONAL: No fever, no malaise, no fatigue. HEENT: No recent visual problems or hearing problems. Denied any sore throat. CARDIOVASCULAR: No orthopnea, PND, no palpitations, no syncope. PULMONARY: No shortness of breath, no cough, no hemoptysis. GASTROINTESTINAL: No diarrhea, no nausea, no vomiting, no abdominal pain. Normoactive bowel sounds. NEUROLOGICAL: No headaches, no weakness, no numbness. HEMATOLOGICAL: Denies any bleeding or petechiae. GENITOURINARY: Denies any burning micturition, frequency, or urgency. MUSCULOSKELETAL/RHEUMATOLOGICAL: Denies any joint pain, swelling, or any muscle pain. ENDOCRINE: Denies any polyuria or polydipsia. Past Medical History Past Medical History: Atrial Fibrillation, Hyperlipidemia, Thyroid Disorder Additional Past Medical History / Comment(s): "extra heart beat", irregular bowel movements, hemorrhoids, "abdominal pain in ovary area" History of Any Multi-Drug Resistant Organisms: None Reported Past Surgical History: Back Surgery, Breast Surgery, Tonsillectomy Additional Past Surgical History / Comment(s): yeyo breast biopsies, 'cysts removed from both breasts", sinus surgery. scheduled for thyroid biopsy May 2019 Past Anesthesia/Blood Transfusion Reactions: No Reported Reaction Past Psychological History: Anxiety Smoking Status: Current every day smoker Past Alcohol Use History: Occasional Past Drug Use History: None Reported - Past Family History Mother Family Medical History: Cancer Sister(s) Family Medical History: Deep Vein Thrombosis (DVT), Pulmonary Embolus Medications and Allergies Home Medications Medication Instructions Recorded Confirmed Type ALPRAZolam [Xanax] 0.5 mg PO DAILY PRN 07/27/20 07/27/20 History Aspirin [Adult Low Dose Aspirin EC] 81 mg PO DAILY@1800 07/27/20 07/27/20 History Atorvastatin [Lipitor] 20 mg PO DAILY@1800 07/27/20 07/27/20 History Metoprolol Succinate [Toprol XL] 25 mg PO DAILY@1800 07/27/20 07/27/20 History Allergies Allergy/AdvReac Type Severity Reaction Status Date / Time cat dander Allergy Unknown Verified 07/27/20 16:59 codeine Allergy Rash/Hives Verified 07/27/20 16:59 Iodinated Contrast Media Allergy Rash/Hives Verified 07/27/20 16:59 [Iodinated Contrast Media - IV Dye] milk Allergy Unknown Verified 07/27/20 16:59 Sulfa (Sulfonamide Allergy Unknown Verified 07/27/20 16:59 Antibiotics) Physical Exam Vitals: Vital Signs Temp Pulse Pulse Resp BP Pulse Ox 07/28/20 05:28 85 18 100/70 96 07/27/20 22:53 83 16 106/72 96 07/27/20 20:58 97.5 F L 99 22 108/72 95 07/27/20 19:17 90 22 112/98 96 07/27/20 18:10 92 20 108/79 95 07/27/20 16:59 112 H 07/27/20 16:57 141 H 20 107/80 95 07/27/20 16:34 98.1 F 171 H 20 115/77 97 Intake and Output 0507/28/20 07/28/20 22:59 06:59 14:59 Other: Weight 62.596 kg GENERAL: The patient is alert and oriented x3, not in any acute distress. Well developed, well nourished. HEENT: Pupils are round and equally reacting to light. EOMI. No scleral icterus. No conjunctival pallor. Normocephalic, atraumatic. No pharyngeal erythema. No thyromegaly. CARDIOVASCULAR: S1 and S2 present. No murmurs, rubs, or gallops. PULMONARY: Chest is clear to auscultation, no wheezing or crackles. ABDOMEN: Soft, nontender, nondistended, normoactive bowel sounds. No palpable organomegaly. MUSCULOSKELETAL: No joint swelling or deformity. EXTREMITIES: No cyanosis, clubbing, or pedal edema. NEUROLOGICAL: Gross neurological examination did not reveal any focal deficits. SKIN: No rashes. No petechiae Results CBC & Chem 7: 07/27/20 17:02 07/27/20 17:02 Assessment and Plan Assessment: not Feeling well with sinus tachycardia, improved. Associated with chest discomfort Nicotine dependence Hypothyroidism History of right neck nodule and she was up with ENT as an outpatient Hyperlipidemia History of atrial fibrillation History of back surgery Plan: This is a pleasant 70 years old female who presents with tachycardia and not feeling well which is improving. 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 Continue with aspirin Labs and medication were reviewed.. Continue same treatment. Continue with symptomatic treatment. Resume home medication. Monitor lytes and vitals. DVT and GI prophylaxis. Further recommendations depends on the clinical course of the patient DVT prophylaxis: Subcutaneous heparin GI Prophylaxis: Pepcid Prognosis is guarded
[2020-07-28] MEDS ORDERED: HEPARIN SODIUM,PORCINE/PF 5,000 UNIT/0.5 ML SYRINGE SQ SCH (09:00)
[2020-07-28] MEDS ORDERED: FAMOTIDINE 20 MG/2 ML VIAL IV SCH (09:00)
[2020-07-28] MEDS ORDERED: ACETAMINOPHEN TAB 325 MG TAB PO PRN (10:26)
[2020-07-28 10:32] VITALS: BP 120/87; PULSE 86; RESP 16
--- NOTE | 2020-07-28 14:14 | P.CRDCN ---
History of Present Illness History of present illness: HISTORY OF PRESENTING ILLNESS This is a pleasant 70-year-old female past medical history significant for paroxysmal atrial fibrillation (not on anticoagulation due to patient refusal), dyslipidemia, and chronic tobacco dependence, hypothyroidism. She follows in the office with Dr. Duke. We have been asked to see in consultation for tachycardia. Patient is seen and examined in the emergency department. She presents to the emergency department with elevated heart rate, stating that she noticed her heart rate fluctuating between 40 and 230 at home. She was racking the leaves, started feeling "funny" 2 days ago, and palpitations. Continued to happen more frequently and decided to present to the emergency department. She states she is currently being worked up for nodules in her neck, getting a biopsy in early August. She also endorses some mild occipital headaches. She smokes about 1.5 packs per day. EKG appears to be atrial fibrillation heart rate 112, however, appears she converted to sinus mechanism. On arrival, patient's vital signs are stable. Patient restarted on her home medications. Currently in sinus mechanism. She denies chest pain, shortness of breath, symptoms of orthopnea or PND, lower extremity edema, fatigue, lightheadedness, dizziness, or syncope. Patient underwent an event monitor outpatient on 05/2019, which revealed sinus mechanism is Baseline rhythm, paroxysmal atrial flutter with no pauses, single PVCs. Patient underwent stress echo in the office on 06/12/2019 which revealed no evidence of stress-induced ischemia. EKG monitoring revealed occasional single PVCs. Most recent echocardiogram 10/2018 EF 60-65%, trace mitral regurgitation, mild tricuspid regurgitation DIAGNOSTICS Chest xray negative for any acute cardiopulmonary process Laboratory reviewed, CBC unremarkable, d-dimer negative, sodium 137, potassium 3.9, serum creatinine 0.52, magnesium 2.1, troponin negative 3, TSH within normal limits, COVID-19 negative Current cardiac medications include metoprolol succinate 25 mg daily, atorvastatin 20 mg daily, aspirin 81 mg daily REVIEW OF SYSTEMS At the time of my exam: CONSTITUTIONAL: Denies fever or chills. CARDIOVASCULAR: +palpitations Denies chest pain, shortness of breath, orthopnea, PND or palpitations. RESPIRATORY: Denies cough. GASTROINTESTINAL: Denies abdominal pain, diarrhea, constipation, nausea or vomiting. MUSCULOSKELETAL: Denies myalgias. NEUROLOGIC: Denies numbness, tingling, headacbe or weakness. ENDOCRINE: Denies fatigue, weight change, polydipsia or polyurina. GENITOURINARY: Denies burning, hematuria or urgency with micturation. HEMATOLOGIC: Denies history of anemia or bleeding. PHYSICAL EXAMINATION Blood pressure 100/70 heart rate 85 afebrile and maintaining oxygen saturation 96% on room air CONSTITUTIONAL: No apparent distress. HEENT: Head is normocephalic. Pupils are equal, round. Sclerae anicteric. Mucous membranes of the mouth are moist. No JVD. No carotid bruit. CHEST EXAMINATION: Lungs are clear to auscultation. No chest wall tenderness is noted on palpation or with deep breathing. HEART EXAMINATION: Regular rate and rhythm. S1, S2 heard. No murmurs, gallops or rub. ABDOMEN: Soft, nontender. Positive bowel sounds. EXTREMITIES: 2+ peripheral pulses, no lower extremity edema and no calf tenderness. NEUROLOGIC EXAMINATION: Patient is awake, alert and oriented x3. ASSESSMENT Paroxysmal atrial fibrillation -[id number] score 2. Currently in sinus mechanism heart rate 70s to 80s. Patient is agreement to anticoagulation at this time Dyslipidemia Chronic tobacco dependence PLAN -We will increase patient's metoprolol succinate to 50mg daily -Patient is in agreement to start anticoagulation. We will start Eliquis 5 mg twice a day. Patient has a high deductible and her coverage is $429.31. Spoke with case management, they are able to get patient up for a month supply. Patient can follow up in the office with Dr. Duke in order to transition to another agent. -Follow up with Dr. Duke in 1-2 weeks. -From cardiology perspective, patient is stable to be discharged home. Smoking cessation discussed and highly recommended. Nurse Practitioner note has been reviewed, I agree with a documented findings and plan of care. Patient was seen and examined. Past Medical History Past Medical History: Atrial Fibrillation, Hyperlipidemia, Thyroid Disorder Additional Past Medical History / Comment(s): "extra heart beat", irregular bowel movements, hemorrhoids, "abdominal pain in ovary area" History of Any Multi-Drug Resistant Organisms: None Reported Past Surgical History: Back Surgery, Breast Surgery, Tonsillectomy Additional Past Surgical History / Comment(s): yeyo breast biopsies, 'cysts removed from both breasts", sinus surgery. scheduled for thyroid biopsy May 2019 Past Anesthesia/Blood Transfusion Reactions: No Reported Reaction Past Psychological History: Anxiety Smoking Status: Current every day smoker Past Alcohol Use History: Occasional Past Drug Use History: None Reported - Past Family History Mother Family Medical History: Cancer Sister(s) Family Medical History: Deep Vein Thrombosis (DVT), Pulmonary Embolus Medications and Allergies Home Medications Medication Instructions Recorded Confirmed Type ALPRAZolam [Xanax] 0.5 mg PO DAILY PRN 07/27/20 07/27/20 History Atorvastatin [Lipitor] 20 mg PO DAILY@1800 07/27/20 07/27/20 History Apixaban [Eliquis] 5 mg PO BID 30 Days #60 tab 07/28/20 Rx Metoprolol Succinate (ER) [Toprol 50 mg PO DAILY@1800 30 Days #30 07/28/20 Rx XL] tab.er.24h Allergies Allergy/AdvReac Type Severity Reaction Status Date / Time cat dander Allergy Unknown Verified 07/27/20 16:59 codeine Allergy Rash/Hives Verified 07/27/20 16:59 Iodinated Contrast Media Allergy Rash/Hives Verified 07/27/20 16:59 [Iodinated Contrast Media - IV Dye] milk Allergy Unknown Verified 07/27/20 16:59 Sulfa (Sulfonamide Allergy Unknown Verified 07/27/20 16:59 Antibiotics) Physical Exam Vitals: Vital Signs Temp Pulse Pulse Resp BP Pulse Ox 07/28/20 05:28 85 18 100/70 96 07/27/20 22:53 83 16 106/72 96 07/27/20 20:58 97.5 F L 99 22 108/72 95 07/27/20 19:17 90 22 112/98 96 07/27/20 18:10 92 20 108/79 95 07/27/20 16:59 112 H 07/27/20 16:57 141 H 20 107/80 95 07/27/20 16:34 98.1 F 171 H 20 115/77 97 Intake and Output 07/27/20 07/28/20 07/28/20 22:59 06:59 14:59 Other: Weight 62.596 kg Results 07/27/20 17:02 07/27/20 17:02 Cardiac Enzymes 07/27/20 07/27/20 07/27/20 Range/Units 17:02 17:02 21:10 AST 25 (14-36) U/L Troponin I <0.012 <0.012 (0.000-0.034) ng/mL 07/28/20 Range/Units 00:42 AST (14-36) U/L Troponin I <0.012 (0.000-0.034) ng/mL Coagulation 07/27/20 Range/Units 17:02 PT 10.5 (9.0-12.0) sec APTT 23.5 (22.0-30.0) sec CBC 07/27/20 Range/Units 17:02 WBC 8.7 (3.8-10.6) k/uL RBC 4.86 (3.80-5.40) m/uL Hgb 15.0 (11.4-16.0) gm/dL Hct 45.6 (34.0-46.0) % Plt Count 249 (150-450) k/uL Comprehensive Metabolic Panel 07/27/20 Range/Units 17:02 Sodium 137 (137-145) mmol/L Potassium 3.9 (3.5-5.1) mmol/L Chloride 107 (98-107) mmol/L Carbon Dioxide 23 (22-30) mmol/L BUN 17 (7-17) mg/dL Creatinine 0.52 (0.52-1.04) mg/dL Glucose 84 (74-99) mg/dL Calcium 9.7 (8.4-10.2) mg/dL AST 25 (14-36) U/L ALT 18 (4-34) U/L Alkaline Phosphatase 63 (38-126) U/L Total Protein 6.6 (6.3-8.2) g/dL Albumin 4.2 (3.5-5.0) g/dL Current Medications Generic Name Dose Route Start Last Admin Trade Name Freq PRN Reason Stop Dose Admin Alprazolam 0.5 mg 07/27/20 19:37 07/27/20 22:25 Alprazolam 0.5 Mg Tab PO 0.5 mg DAILY PRN Administration ANXIETY/SLEEP Aspirin 81 mg 07/28/20 18:00 Aspirin 81 Mg PO DAILY@1800 [facility] Atorvastatin Calcium 20 mg 07/28/20 18:00 Atorvastatin 20 Mg Tab PO DAILY@1800 [facility] Famotidine 20 mg 07/28/20 09:00 07/28/20 09:19 Famotidine 20 Mg/2 Ml Vial IV 20 mg Q12HR ADELINA Administration Heparin Sodium (Porcine) 5,000 unit 07/28/20 09:00 07/28/20 09:19 Heparin Sodium,Porcine/Pf 5,000 Unit/0.5 Ml Syringe SQ 5,000 unit Q12HR ADELINA Administration Sodium Chloride 1,000 mls @ 20 mls/hr 07/27/20 20:45 07/27/20 20:58 Saline 0.9% IV 20 mls/hr .Q24H ADELINA Administration Metoprolol Succinate 25 mg 07/28/20 18:00 Metoprolol Succinate (Er) 25 Mg Tab.Er.24h PO DAILY@1800 ADELINA Naloxone HCl 0.2 mg 07/27/20 20:41 Naloxone 0.4 Mg/Ml 1 Ml Vial IV Q2M PRN Opioid Reversal Intake and Output 07/27/20 07/28/20 07/28/20 22:59 06:59 14:59 Other: Weight 62.596 kg 07/27/20 17:02 07/27/20 17:02
[2020-07-28] MEDS ORDERED: METOPROLOL SUCCINATE (ER) 50 MG TAB.ER.24H PO SCH (18:00)
[2020-07-28] MEDS ORDERED: ASPIRIN 81 MG PO SCH (18:00)
[2020-07-28] MEDS ORDERED: METOPROLOL SUCCINATE (ER) 25 MG TAB.ER.24H PO SCH (18:00)
[2020-07-28] MEDS ORDERED: ATORVASTATIN 20 MG TAB PO SCH (18:00)
[2020-07-28] MEDS ORDERED: APIXABAN 5 MG TAB PO SCH ×2 (21:00)
[2020-07-29] MEDS ORDERED: ASPIRIN 81 MG PO SCH (09:00)
== END 2020-07-28 17:41 | disposition home or self-care (01) ==
LOC: EC 16:31 → 1SOBS 20:44
PROVIDERS: ADMIT Internal Medicine; ATTEND Internal Medicine
DX: R00.0 Tachycardia, unspecified (principal); E86.0 Dehydration; R07.89 Other chest pain; E03.9 Hypothyroidism, unspecified; E78.5 Hyperlipidemia, unspecified; I48.0 Paroxysmal atrial fibrillation; E04.1 Nontoxic single thyroid nodule; R22.1 Localized swelling, mass and lump, neck; K64.9 Unspecified hemorrhoids; F41.9 Anxiety disorder, unspecified; F17.210 Nicotine dependence, cigarettes, uncomplicated; Z20.822 Contact with and (suspected) exposure to COVID-19; Z79.82 Long term (current) use of aspirin; Z79.899 Other long term (current) drug therapy; Z91.041 Radiographic dye allergy status; Z91.011 Allergy to milk products; Z88.5 Allergy status to narcotic agent; Z88.2 Allergy status to sulfonamides; Z91.048 Other nonmedicinal substance allergy status; Z98.890 Other specified postprocedural states; Z87.42 Personal history of other diseases of the female genital tract; Z82.49 Family history of ischemic heart disease and other diseases of the circulatory system; Z80.9 Family history of malignant neoplasm, unspecified
CPT/HCPCS: 96372; 96374; 96361; 99285; 36415; 93005; 85379; 80053; 82550; 83735; 84443; 84484 ×2; 85025; 85610; 85730; 87635; 71046; G0378 ×2; J1644

== ENCOUNTER 2020-08-12 09:28 | Day surgery (SDC) | payer MEDICARE ==
[2020-08-12 10:15] VITALS: RESP 16; TEMP 97.5
[2020-08-12] MEDS ORDERED: ALPRAZolam 0.25 MG TAB PO STA (10:15)
--- NOTE | 2020-08-12 11:43 | US ---
ULTRASOUND GUIDED FNA AND CORE THYROID BIOPSY: CLINICAL HISTORY: Request for right and left thyroid nodule FINDINGS: The procedure was explained to the patient. The risks, complications, benefits and alternatives were discussed and any questions were answered. Informed consent was obtained. Patient was placed supin e on the ultrasound table and prepped and draped in the usual sterile fashion. Utilizing a 25 gauge needle, five passes were made into the requested right and left thyroid nodule. Additionally, a 20-ga uge single core biopsy samples obtained of the larger right thyroid nodule. Patient was stable throughout the procedure. Pathology is pending. All elements of maximal barrier technique were utilized. IMPRESSION: 1. Successful ultrasound guided thyroid biopsy.
[2020-08-12 12:09] VITALS: BP 121/79; PULSE 70
== END 2020-08-12 11:30 | disposition home or self-care (01) ==
LOC: RADPROMAIN 09:28
PROVIDERS: ATTEND Otolaryngology
DX: E04.2 Nontoxic multinodular goiter (principal); F32.9 Major depressive disorder, single episode, unspecified; Z98.890 Other specified postprocedural states; Z91.041 Radiographic dye allergy status; Z80.3 Family history of malignant neoplasm of breast; Z80.1 Family history of malignant neoplasm of trachea, bronchus and lung; Z80.0 Family history of malignant neoplasm of digestive organs; Z82.49 Family history of ischemic heart disease and other diseases of the circulatory system; Z83.3 Family history of diabetes mellitus; Z83.42 Family history of familial hypercholesterolemia; Z91.011 Allergy to milk products; Z79.899 Other long term (current) drug therapy; Z88.5 Allergy status to narcotic agent; Z88.2 Allergy status to sulfonamides; Z91.048 Other nonmedicinal substance allergy status; Z91.09 Other allergy status, other than to drugs and biological substances
CPT/HCPCS: 10005; 10006; 21550; 88173; 88305

== ENCOUNTER → 2020-08-24 | Outpatient (CLI) | payer MEDICARE ==
--- NOTE | 2020-08-27 08:24 | BD ---
EXAMINATION TYPE: Axial Bone Density DATE OF EXAM: 08/24/2020 COMPARISON: NONE CLINICAL HISTORY: Postmenopausal female. Height: 5 FT 5 1/2 IN Weight: 138 FRAX RISK QUESTIONS: Alcohol (3 or more units per day): NO Family History (Parent hip fracture): NO Glucocorticoids (More than 3mos): NO (Ex: prednisone, prednisolone, methylprednisolone, dexamethasone, and hydrocortisone). History of Fracture in Adulthood: YES Secondary Osteoporosis: 1. Type 1 Diabetes: NO 2. Hyperthyroidism: NO 3. Menopause before 45: YES 4. Malnutrition: NO 5. Chronic liver disease: NO Rheumatoid Arthritis: NO Current Tobacco Use: YES RISK FACTORS HISTORY OF: Surgery to Spine/Hip(right/left)/Wrist (right/left): LUMBAR SURE When: OVER 23 YEARS AGO Family History of Osteoporosis: NO Active: NO Diet low in dairy products/other sources of calcium: NO Postmenopausal woman: AGE 45 Take estrogen and/or progesterone medications: NO Lost more than 2 inches in height since high school: NO Poor Health: FAIR MEDICATIONS: Additional Medications: CHOLESTEROL MEDS, XANAX, METOPROLOL, ELOQUIS Additional History: EXAM MEASUREMENTS: Bone mineral density about the R hip (g/cm2): 0.837 Bone mineral density about the L hip (g/cm2): 0.882 T Score values are as follows: -----R Neck: -1.4 -----L Neck: -1.1 -----R Total: -1.5 -----L Total: -1.0 Bone mineral density has: INCREASED 0.8 % since study of: 2018 Bone mineral density about the L Wrist (g/cm2): 0.666 T Score values are as follows: -----Dist. R+U: -0.7 -----Prox. R+U: -0.1 -----Radius total: -0.1 FIRST TIME WRIST HAS BEEN DONE IMPRESSION: Osteopenia (T Score between -2.5 and -1). There is slightly increased risk of fracture and the patient may be considered for treatment. Re-Screen 2-5 years. NOTE: T-SCORE=SD OF THE YOUNG ADULT MEAN.
== END | disposition home or self-care (01) ==
LOC: RADBDWWP 16:23
PROVIDERS: ATTEND Family Medicine
DX: M85.80 Other specified disorders of bone density and structure, unspecified site (principal); Z78.0 Asymptomatic menopausal state
CPT/HCPCS: 77080

== ENCOUNTER → 2021-01-18 | Outpatient (CLI) | payer MEDICARE ==
[2021-01-18 17:25] LABS: African American GFR (CKD) 103.5 (60.0-200.0); Albumin 4.3 g/dL (3.8-4.9); Anion Gap 9.9 mmol/L (4.00-12.00); BUN/Creat Ratio 18.29 Ratio (12.00-20.00); Blood Urea Nitrogen 12.4 mg/dL (9.0-27.0); Calcium 9.6 mg/dL (8.7-10.3); Carbon Dioxide 23.8 mmol/L (21.6-31.8); Chol/HDL Ratio 3.21 Ratio; Globulin 2.2 g/dL (1.6-3.3); HDL Cholesterol 60.1 mg/dL (40.00-60.00); LDL Cholesterol,Calculated 108.7 mg/dL (0.0-131.0); Non-African American GFR(CKD) 89.3 (60.0-200.0); Potassium 4.7 mmol/L (3.5-5.5); Total Bilirubin 0.4 mg/dL (0.30-1.20); Total Protein 6.5 g/dL (6.2-8.2); VLDL Calculation 24.2 mg/dL (5.00-40.00)
== END | disposition home or self-care (01) ==
LOC: LABWHC1 09:05
PROVIDERS: ATTEND Nurse Practitioner Adult Health
DX: I48.0 Paroxysmal atrial fibrillation (principal); E78.2 Mixed hyperlipidemia
CPT/HCPCS: 36415; 80053; 80061

== ENCOUNTER → 2021-03-22 | Outpatient (CLI) | payer MEDICARE ==
--- NOTE | 2021-03-22 16:33 | US ---
EXAMINATION TYPE: US thyroid st tissue head/neck DATE OF EXAM: 03/22/2021 COMPARISON: 02/28/2019 CLINICAL HISTORY: 71-year-old female E04.1 Thyroid nodule. Follow up thyroid nodules TECHNIQUE: Multiple sonographic images of the thyroid gland are obtained. FINDINGS: GLAND SIZE: Right Lobe: 4.2 x 2.3 x 2.4 cm Overall Parenchyma: Mildly heterogenous Left Lobe: 3.7 x 1.3 x 1.2 cm Overall Parenchyma: Mildly heterogeneous. The left lobe is lobulated in contour. Isthmus Thickness: 0.2 cm NODULES RIGHT: # of nodules measured on right: 1 1. 3.4 X 2.4 x 2.6 cm, mid , solid or almost completely solid, hypoechoic nodule, which is wider th an tall, with smooth margins, without echogenic foci. Prior size: 3.2 x 2.2 x 2.6 cm LEFT: # of nodules measured on left: 1 1. 1.3 X 1.0 x 0.9 cm, lower mid, solid or almost completely solid, hypoechoic nodule, which is wid er than tall, with smooth margins, without echogenic foci. Prior size: 1.4 x 1.1 x 1.2 cm ISTHMUS: # of nodules measured in the isthmus: 0 Bilateral neck scanned, no evidence of lymphadenopathy. IMPRESSION: 1. Dominant solid nodule in the right lobe measures 3.4 x 2.6 cm (versus 3.2 x 2.6 cm, previously). 2. Dominant solid nodule on the left is unchanged to slightly smaller at 1.3 cm ( versus 1.4 cm, prev iously).
== END | disposition home or self-care (01) ==
LOC: RADUSWWP 15:04
PROVIDERS: ATTEND Otolaryngology
DX: E04.1 Nontoxic single thyroid nodule (principal)
CPT/HCPCS: 76536

== ENCOUNTER → 2021-08-05 | Outpatient (CLI) | payer MEDICARE ==
[2021-08-05 20:28] LABS: ALT 17 U/L (8-44); AST 15 U/L (13-35); African American GFR (CKD) 101.7 (60.0-200.0); Albumin 4.3 g/dL (3.8-4.9); Albumin/Globulin Ratio 2.05 (1.60-3.17); Alkaline Phosphatase 58 U/L (41-126); BUN/Creat Ratio 16.14 Ratio (12.00-20.00); Blood Urea Nitrogen 11.3 mg/dL (9.0-27.0); Calcium 9.7 mg/dL (8.7-10.3); Carbon Dioxide 26.3 mmol/L (20.0-27.5); Chloride 104 mmol/L (96-109); Chol/HDL Ratio 3.53 Ratio; Globulin 2.1 g/dL (1.6-3.3); Glucose 94 mg/dL (70-110); LDL Cholesterol,Calculated 121.7 mg/dL (0.0-131.0); Non-African American GFR(CKD) 87.8 (60.0-200.0); Potassium 4.8 mmol/L (3.5-5.5); Sodium 140 mmol/L (135-145); Total Protein 6.4 g/dL (6.2-8.2)
== END | disposition home or self-care (01) ==
LOC: LABWHC1 09:39
PROVIDERS: ATTEND Nurse Practitioner Adult Health
DX: E78.2 Mixed hyperlipidemia (principal)
CPT/HCPCS: 36415; 80053; 80061

== ENCOUNTER → 2022-08-16 | Outpatient (CLI) | payer MEDICARE ==
--- NOTE | 2022-08-16 14:13 | CTL ---
EXAMINATION TYPE: CT Low Dose Lung DATE OF EXAM ORDERED: 08/16/2022 HISTORY: Long-term tobacco use. Lung cancer screening CT DLP: 59.[address] CTDI: 1.5 mGy Automated exposure control for dose reduction was used. SCREENING VISIT: Third after baseline COMPARISON: Prior study May 04, 2022 and older exams TECHNIQUE: Low dose computed tomography scan was performed through the chest at 1 mm thick sections a nd reconstructed images in multiple planes at 1 mm and 5, 8, and [address] DIAGNOSTIC QUALITY: Satisfactory FINDINGS: LUNG NODULES: Present, detailed below: There is 7 mm peripheral left lower lobe nodule axial image 212 continued slightly larger in size fro m prior studies. Stable 3-4 mm benign calcified nodule or granuloma right lung base on axial image 26 0. No new greater than 5 mm pulmonary nodules. LUNGS: COPD: Severity: [id number] Fibrosis: Severity: None Lymph nodes: None Other findings: None RIGHT PLEURAL SPACE: Effusion: None Calcification: None Thickening: None Pneumothorax: None LEFT PLEURAL SPACE: Effusion: None Calcification: None Thickening: None Pneumothorax: None HEART: Heart Size: Normal Coronary Calcification: Moderate to severe coronary artery calcification redemonstrated Pericardial Effusion: None OTHER FINDINGS: Upper abdomen: Lobulated thin-walled cyst in the right hepatic dome measuring 2 0.6 cm long axis axia l image 56 series 5 is redemonstrated. Bony thorax: Scoliosis is redemonstrated Supraclavicular region: Asymmetric prominent right thyroid lobe due to right thyroid hypodense nodule again seen. Findings correlate with thyroid ultrasound March 22, 2021 where 3.4 cm solid nodule is noted. Other: Prominent Calcification at level of the mitral valve is redemonstrated IMPRESSION: Slow growing 7 mm peripheral left lower lobe nodule noted on today's study. CT LUNG RAD AND CT CHEST RECOMMENDATION: Lung-Rad 4A Suspicious: Follow-up 3 month LDCT or PET/CT may be used when there is a > 8 mm solid component. Consider short-term CT monitoring. Consider cardioth oracic surgical evaluation. S Modifier (other clinically significant findings): S Moderate to severe coronary artery calcification should be correlated with additional cardiac risk fa ctors.
== END | disposition home or self-care (01) ==
LOC: RADCTMAIN 12:33
PROVIDERS: ATTEND Family Medicine
DX: Z12.2 Encounter for screening for malignant neoplasm of respiratory organs (principal); F17.210 Nicotine dependence, cigarettes, uncomplicated; R91.1 Solitary pulmonary nodule
CPT/HCPCS: 71271

== ENCOUNTER → 2022-10-24 | Outpatient (CLI) | payer MEDICARE ==
[2022-10-24 14:58] LABS: ALT 15 U/L (8-44); AST 21 U/L (13-35); Albumin 4.3 d/dL (3.8-4.9); Albumin/Globulin Ratio 2.05 Ratio (1.60-3.17); Alkaline Phosphatase 62 U/L (41-126); BUN/Creat Ratio 21.29 Ratio (12.00-20.00); Blood Urea Nitrogen 14.9 mg/dL (9.0-27.0); Calcium 9.9 mg/dL (8.7-10.3); Chloride 107 mmol/L (96-109); Chol/HDL Ratio 3.37 Ratio; Globulin 2.1 d/dL (1.6-3.3); Glucose 90 mg/dL (70-110); LDL Cholesterol,Calculated 122.8 mg/dL (0.0-131.0); Potassium 5.2 mmol/L (3.5-5.5); Sodium 141 mmol/L (135-145); Total Bilirubin 0.4 mg/dL (0.3-1.2); Total Protein 6.4 d/dL (6.2-8.2)
== END | disposition home or self-care (01) ==
LOC: LABWHC1 10:23
PROVIDERS: ATTEND Internal Medicine Interventional Cardiology
DX: I48.0 Paroxysmal atrial fibrillation (principal); E78.2 Mixed hyperlipidemia
CPT/HCPCS: 36415; 80053; 80061

== ENCOUNTER → 2023-03-14 | Outpatient (CLI) | payer MEDICARE ==
--- NOTE | 2023-03-16 08:20 | CTL ---
EXAMINATION TYPE: CT Low Dose Lung DATE OF EXAM ORDERED: 03/14/2023 HISTORY: Long-term tobacco use. Lung cancer screening CT DLP: 64.[address] CTDI: 1.6 mGy Automated exposure control for dose reduction was used. SCREENING VISIT: Fourth after baseline COMPARISON: Most recent study August 16, 2022 and older studies TECHNIQUE: Low dose computed tomography scan was performed through the chest at 1 mm thick sections a nd reconstructed images in multiple planes at 1 mm and [address] DIAGNOSTIC QUALITY: Satisfactory FINDINGS: LUNG NODULES: Present, detailed below: Stable 7 mm peripheral left lower lobe nodule axial image 223 current study. Continued slightly large r in size from prior studies. Stable 3mm benign calcified nodule or granuloma right lung base on axia l image 261. No new greater than 5 mm pulmonary nodules. LUNGS: COPD: Severity: [id number] Fibrosis: Severity: Minimal Lymph nodes: None Other findings: None RIGHT PLEURAL SPACE: Effusion: None Calcification: None Thickening: None Pneumothorax: None LEFT PLEURAL SPACE: Effusion: None Calcification: None Thickening: None Pneumothorax: None HEART: Heart Size: Normal Coronary Calcification: Moderate to severe coronary artery calcification redemonstrated Pericardial Effusion: None OTHER FINDINGS: Upper abdomen: Lobulated thin-walled cyst in the right hepatic dome axial image 56 series 5 is redemo nstrated and stable. Bony thorax: Scoliosis is redemonstrated Supraclavicular region: Asymmetric prominent right thyroid lobe due to right thyroid hypodense nodule again seen. Findings correlate with thyroid ultrasound March 22, 2021 where 3.4 cm solid nodule is noted. Other: Prominent Calcification at level of the mitral valve is redemonstrated IMPRESSION: No new or enlarging pulmonary nodules. Stable 7 mm peripheral left lower lung nodule. CT LUNG RAD AND CT CHEST RECOMMENDATION: Lung-Rad 2 Benign Appearance or Behavior: Continue annual sc reening with LDCT in 12 months. S Modifier (other clinically significant findings): S Moderate to severe coronary artery calcification should be correlated with additional cardiac risk fa ctors.
== END | disposition home or self-care (01) ==
LOC: RADCTMAIN 12:19
PROVIDERS: ATTEND Family Medicine
DX: Z12.2 Encounter for screening for malignant neoplasm of respiratory organs (principal); R91.1 Solitary pulmonary nodule
CPT/HCPCS: 71271

== ENCOUNTER → 2023-04-12 | Outpatient (CLI) | payer MEDICARE ==
--- NOTE | 2023-04-13 08:40 | MM ---
Reason for Exam: Screening (asymptomatic). Last mammogram was performed 1 year(s) and 3 month(s) ago. Patient History: Menarche at age 15. First Full-Term at age 21. Postmenopausal. Bilateral Excisional Biopsy. Excisional Biopsy on the Right side. Excisional Biopsy on the Left side. Mother had breast cancer, age 57. Risk Values: Rupal 5 year model risk: 4.6%. NCI Lifetime model risk: 11.6%. Prior Study Comparison: 10/15/2017 Bilateral Screening Mammogram, [facility]. 03/17/2019 Bilateral Screening Mammogram, [facility]. 01/12/2022 Bilateral MG 3D screening mammo w/cad, [facility]. Tissue Density: The breast tissue is heterogeneously dense. This may lower the sensitivity of mammography. Findings: Analyzed By CAD. There is no suspicious group of microcalcifications or new suspicious mass in either breast. Overall Assessment: Benign, BI-RAD 2 Management: Screening Mammogram of both breasts in 1 year. . Patient should continue monthly self-breast exams. A clinical breast exam by your physician is recommended on an annual basis. This exam should not preclude additional follow-up of suspicious palpable abnormalities. Note on Rupal scores and lifetime risk: 1. A Rupal score greater than 3% is considered moderate risk. If this is the case, consider specialist referral to assess eligibility for a risk reducing agent. 2. If overall lifetime risk for the development of breast cancer is 20% or higher, the patient may qualify for future screening with alternating mammogram and breast MRI. Electronically signed and approved by: Marlon Colon M.D. Radiologis
== END | disposition home or self-care (01) ==
LOC: RADMAMWWP 13:30
PROVIDERS: ATTEND Family Medicine
DX: Z12.31 Encounter for screening mammogram for malignant neoplasm of breast (principal); Z80.3 Family history of malignant neoplasm of breast; Z78.0 Asymptomatic menopausal state
CPT/HCPCS: 77063; 77067

== ENCOUNTER → 2023-07-02 | Outpatient (CLI) | payer MEDICARE ==
--- NOTE | 2023-07-03 12:01 | US ---
EXAMINATION TYPE: US thyroid st tissue head/neck DATE OF EXAM: 07/02/2023 COMPARISON: NONE CLINICAL INDICATION: Female, 73 years old with history of N93.9 ABNORMAL UTERINE BLEEDING; f/u nodule GLAND SIZE: Right Lobe: 4.7 x 2.5 x 2.3 cm cm Overall Parenchyma: homogeneous Left Lobe: 5.2 x 1.1 x 1.4 cm cm Overall Parenchyma: homogeneous Isthmus Thickness: cm NODULES RIGHT: # of nodules measured on right: 1 1. 3.5 X 2.1 x 2.2 cm, lower mid, solid or almost completely solid, hypoechoic nodule, which is wid er than tall, with lobulated or irregular margins, without echogenic foci. Prior size: 3.5 x 2.4 x 2.6 cm LEFT: # of nodules measured on left: 1 1. 1.6 X 0.9 x 1.2 cm, lower mid, solid or almost completely solid, isoechoic nodule, which is wide r than tall, with smooth margins, without echogenic foci. Prior size: 1.3 x 0.9 x 1.0 cm ISTHMUS: # of nodules measured in the isthmus: 1 1. 1.3 X 0.5 x 0.9 cm, upper right, solid or almost completely solid, hypoechoic nodule, which is wider than tall, with smooth margins, without echogenic foci. Bilateral neck scanned, no evidence of lymphadenopathy. carotid plaque noted left ICA IMPRESSION: Stable dominant nodules bilaterally which have been sampled previously.
== END | disposition home or self-care (01) ==
LOC: RADUSWWP 15:51
PROVIDERS: ATTEND Otolaryngology
DX: E04.1 Nontoxic single thyroid nodule (principal)
CPT/HCPCS: 76536

== ENCOUNTER → 2023-08-24 | Outpatient (CLI) | payer MEDICARE ==
--- NOTE | 2023-08-26 17:21 | US ---
EXAMINATION TYPE: US carotid duplex BILAT DATE OF EXAM: 08/24/2023 COMPARISON: Carotid ultrasound 10/22/2018 CLINICAL INDICATION: Female, 73 years old with history of I65.23 OCCLUSION AND STENOSIS OF BILATERAL CAROTID; stenosis TECHNIQUE: Carotid duplex ultrasound examination. Indirect Doppler criteria was utilized. FINDINGS: EXAM MEASUREMENTS: RIGHT: Peak Systolic Velocity (PSV) cm/sec ----- Right CCA: 52.2 ----- Right ICA: 129.1 ----- Right ECA: 60.9 ICA/CCA ratio: 2.5 RIGHT: End Diastole cm/sec ----- Right CCA: 17.3 ----- Right ICA: 49.9 ----- Right ECA: 11.6 LEFT: Peak Systolic Velocity (PSV) cm/sec ----- Left CCA: 62.8 ----- Left ICA: 83.8 ----- Left ECA: 64.4 ICA/CCA ratio: 1.3 LEFT: End Diastole cm/sec ----- Left CCA: 22.5 ----- Left ICA: 38.6 ----- Left ECA: 0 VERTEBRALS (direction of flow): Right Vertebral: Antegrade Left Vertebral: Antegrade Rhythm: Normal [employer] NOTES: Bilateral plaque visualized IMPRESSION: 1. Approximately 50-69% stenosis at the origin of the right internal carotid artery secondary to brody cified plaque. 2. No significant stenosis of the left internal carotid artery. Criteria for Assigning % of Stenosis / Diameter reduction (Estimation based on the indirect measurements of the internal carotid artery velocities (ICA PSV). 1. Normal (no stenosis)=ICA PSV < 125 cm/s: ratio < 2.0: ICA EDV<40 cm/s. 2. Less than 50% stenosis=ICA PSV < 125 cm/s: ratio < 2.0: ICA EDV<40 cm/s. 3. 50 to 69% stenosis=ICA PSV of 125 to 230 cm/s: ration 2.0 ? 4.0: ICA EDV 40-100 cm/s. 4. Greater than 70% stenosis to near occlusion= ICA PSV > 230 cm/s: ratio > 4.0: ICA EDV > 100 cm/s. 5. Near occlusion= ICA PSV velocities may be low or undetectable: variable ratio and ICA EDV. 6. Total occlusion=unable to detect flow.
== END | disposition home or self-care (01) ==
LOC: RADUSWWP 08:14
PROVIDERS: ATTEND Otolaryngology
DX: I65.23 Occlusion and stenosis of bilateral carotid arteries (principal); I65.21 Occlusion and stenosis of right carotid artery
CPT/HCPCS: 93880

== ENCOUNTER → 2023-10-01 | Outpatient (CLI) | payer MEDICARE ==
--- NOTE | 2023-10-01 17:08 | MR ---
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 History of surgery. COMPARISON: None TECHNIQUE: Multi planar, multi sequence imaging was performed utilizing: T1-weighted, T2-weighted, a nd turbo inversion recovery imaging of the lumbar spine. IV Contrast: cc . (None if empty) FINDINGS: Alignment: Vertebral bodies have preserved heights. There is mild scoliotic change to the spine. Grad e 1 anterolisthesis of L3 on L4. Cord: The conus medullaris and the distal spinal cord appear unremarkable with regards to their signa l intensity and morphology. Bones/Discs: Degeneration changes throughout the spine with osteophyte formation and facet joint arth ropathy. Multilevel disc desiccation is present. Reactive adjoining endplate edema at L4-L5 and L5-S1 adjoining endplates. T12-L1: No evidence of significant spinal canal stenosis or neural foraminal stenosis. L1-L2: Disc bulge and facet joint arthropathy result in mild spinal canal and severe right and modera te severe left neural foraminal stenosis. L2-L3: Disc bulge and facet joint arthropathy result in moderate spinal canal and moderate bilateral neural foraminal stenosis. L3-L4: Disc bulge and facet joint arthropathy result in mild spinal canal and moderate bilateral neur al foraminal stenosis. L4-L5: Disc bulge and facet joint arthropathy result in mild to moderate spinal canal and moderate an d severe left bilateral neural foraminal stenosis. L5-S1: The disc has a rounded posterior morphology without significant spinal canal stenosis. Facet j oint arthropathy with mild right and severe left bilateral neural foraminal stenosis. No significant spinal canal or neural foraminal stenosis in the remainder of the visualized levels. Other findings: None. IMPRESSION: 1. L4-L5, L5-S1 severe left neural foraminal stenosis. 2. L1-L2 severe right neural foraminal stenosis. 3. Grade 1 anterolisthesis of L3 on L4. 4. Spinal canal stenosis worse at L2-L3 with moderate spinal canal stenosis.
== END | disposition home or self-care (01) ==
LOC: RADMRIMAIN 15:54
PROVIDERS: ATTEND Orthopaedic Surgery Orthopaedic Surgery of the Spine
DX: M47.816 Spondylosis without myelopathy or radiculopathy, lumbar region (principal); M51.36 Other intervertebral disc degeneration, lumbar region; M41.86 Other forms of scoliosis, lumbar region; M43.16 Spondylolisthesis, lumbar region; M47.817 Spondylosis without myelopathy or radiculopathy, lumbosacral region; M62.830 Muscle spasm of back; M51.16 Intervertebral disc disorders with radiculopathy, lumbar region; R26.2 Difficulty in walking, not elsewhere classified; R26.9 Unspecified abnormalities of gait and mobility; M99.73 Connective tissue and disc stenosis of intervertebral foramina of lumbar region
CPT/HCPCS: 72148

== ENCOUNTER → 2024-01-18 | Outpatient (CLI) | payer MEDICARE ==
[2024-01-18 15:32] LABS: ALT 15 U/L (8-44); AST 16 U/L (13-35); Chol/HDL Ratio 3.26 Ratio; LDL Cholesterol,Calculated 135.4 mg/dL (0.0-131.0); VLDL Calculation 17.82 mg/dL (5.00-40.00)
== END | disposition home or self-care (01) ==
LOC: LABWHC1 09:45
PROVIDERS: ATTEND Family Medicine
DX: E78.5 Hyperlipidemia, unspecified (principal)
CPT/HCPCS: 36415; 80061; 84450; 84460

== ENCOUNTER → 2024-03-17 | Outpatient (CLI) | payer MEDICARE ==
--- NOTE | 2024-03-17 13:32 | CTL ---
EXAMINATION TYPE: CT Low Dose Lung DATE OF EXAM ORDERED: 03/17/2024 COMPARISON: Prior study March 14, 2023 and older studies CLINICAL INDICATION: Female, 74 years old with history of Z12.2 Screening; PHH, SMOKER, Lung cancer s creening, History of Smoking/tobacco use. TECHNIQUE: Low dose computed tomography scan was performed through the chest at 1 mm thick sections a nd reconstructed images in multiple planes at 1 mm and [address] DLP: 59.[address] CTDI: 1.4 mGy Automated exposure control for dose reduction was used. CT DIAGNOSTIC QUALITY: Satisfactory FINDINGS: LUNG NODULES: Present, detailed below: Stable 7 mm peripheral left lower lobe nodule axial image 228 current study. Stable 3mm benign calci fied nodule or granuloma right lung base anteriorly on axial image 261. Stable 4 mm calcified periphe ral right basilar nodule axial image 283. No new greater than 5 mm pulmonary nodules. LUNGS: COPD: Severity: [id number] Fibrosis: Severity: Minimal Lymph nodes: None Other findings: None RIGHT PLEURAL SPACE: Effusion: None Calcification: None Thickening: None Pneumothorax: None LEFT PLEURAL SPACE: Effusion: None Calcification: None Thickening: None Pneumothorax: None HEART: Heart Size: Normal Coronary Calcification: Moderate to severe coronary artery calcification redemonstrated Pericardial Effusion: None OTHER FINDINGS: Upper abdomen: Lobulated thin-walled cyst in the right hepatic dome axial image 56 series 5 is redemo nstrated and stable. Bony thorax: Scoliosis is redemonstrated Supraclavicular region: Asymmetric prominent right thyroid lobe due to right thyroid hypodense nodule again seen. Findings correlate with thyroid ultrasound March 22, 2021 where 3.4 cm solid nodule is noted. Other: Prominent Calcification at level of the mitral valve is redemonstrated IMPRESSION: No new or enlarging pulmonary nodules. Stable 7 mm peripheral left lower lung nodule. CT LUNG RAD AND CT CHEST RECOMMENDATION: Lung-Rad 2 Benign Appearance or Behavior: Continue annual sc reening with LDCT in 12 months. S Modifier (other clinically significant findings): S Persistent Moderate to severe coronary artery calcification should be correlated with additional card iac risk factors. [facility], , 03/17/2024 1:29 PM
== END | disposition home or self-care (01) ==
LOC: RADCTMAIN 10:42
PROVIDERS: ATTEND Internal Medicine Critical Care Medicine
DX: Z12.2 Encounter for screening for malignant neoplasm of respiratory organs (principal); J44.9 Chronic obstructive pulmonary disease, unspecified; F17.210 Nicotine dependence, cigarettes, uncomplicated; R91.1 Solitary pulmonary nodule
CPT/HCPCS: 71271

== ENCOUNTER → 2024-06-10 | Outpatient (CLI) | payer MEDICARE ==
--- NOTE | 2024-06-10 11:42 | MM ---
Reason for Exam: Screening (asymptomatic). Last mammogram was performed 1 year(s) and 2 month(s) ago. Patient History: Menarche at age 15. First Full-Term at age 21. Postmenopausal. Bilateral Excisional Biopsy. Excisional Biopsy on the Right side. Excisional Biopsy on the Left side. Mother had breast cancer, age 57. Risk Values: Rupal 5 year model risk: 4.6%. NCI Lifetime model risk: 11.0%. Prior Study Comparison: 03/17/2019 Bilateral Screening Mammogram, [facility]. 01/12/2022 Bilateral MG 3D screening mammo w/cad, [facility]. 04/12/2023 Bilateral MG 3D screening mammo w/cad, [facility]. Tissue Density: The breasts are heterogeneously dense, which may obscure small masses. Findings: Analyzed By CAD. There is no suspicious group of microcalcifications or new suspicious mass in either breast. Overall Assessment: Benign, BI-RAD 2 Management: Screening Mammogram of both breasts in 1 year. . Patient should continue monthly self-breast exams. A clinical breast exam by your physician is recommended on an annual basis. This exam should not preclude additional follow-up of suspicious palpable abnormalities. Note on Rupal scores and lifetime risk: 1. A Rupal score greater than 3% is considered moderate risk. If this is the case, consider specialist referral to assess eligibility for a risk reducing agent. 2. If overall lifetime risk for the development of breast cancer is 20% or higher, the patient may qualify for future screening with alternating mammogram and breast MRI. [facility], , 06/10/2024 11:39 AM. Electronically signed and approved by: Marlon Colon M.D. Radiologis
== END | disposition home or self-care (01) ==
LOC: RADMAMWWP 10:58
PROVIDERS: ATTEND Family Medicine
DX: Z12.31 Encounter for screening mammogram for malignant neoplasm of breast (principal); R92.333 Mammographic heterogeneous density, bilateral breasts; Z78.0 Asymptomatic menopausal state; Z80.3 Family history of malignant neoplasm of breast
CPT/HCPCS: 77063; 77067

== ENCOUNTER → 2024-06-26 | Outpatient (CLI) | payer MEDICARE ==
[2024-06-26 15:34] LABS: Basophils # (A) 0.03 X 10*3/uL (0.00-0.10); Basophils % (A) 0.5 %; Eosinophils # (A) 0.08 X 10*3/uL (0.04-0.35); Eosinophils % (A) 1.2 %; HCT 44.2 % (37.2-46.3); HGB 15.3 g/dL (12.0-15.0); Lymphocytes % (A) 30.8 %; MCH 32.5 pg (27.0-32.0); MCHC 34.6 g/dL (32.0-37.0); MCV 93.8 FL (80.0-97.0); Mean Platelet Volume 10.2 FL (9.5-12.2); Monocytes # (A) 0.44 X 10*3/uL (0.20-1.00); Monocytes % (A) 6.8 %; NRBC Per 100 WBC 0 X 10*3/uL (0.00-0.01); Neutrophils # (A) 3.92 X 10*3/uL (1.80-7.70); Neutrophils % (A) 60.4 %; Platelet Count 258 X 10*3/uL (140-440); RBC 4.71 X 10*6/uL (4.10-5.20); RDW 13.2 % (11.5-14.5); WBC 6.49 X 10*3/uL (4.50-10.00)
[2024-06-26 19:18] LABS: ALT 24 U/L (8-44); AST 23 U/L (13-35); Albumin 4.2 g/dL (3.8-4.9); Albumin/Globulin Ratio 1.91 Ratio (1.60-3.17); Alkaline Phosphatase 60 U/L (41-126); BUN/Creat Ratio 16.14 Ratio (12.00-20.00); Blood Urea Nitrogen 11.3 mg/dL (9.0-27.0); Calcium 9.7 mg/dL (8.7-10.3); Carbon Dioxide 22.6 mmol/L (21.6-31.8); Chloride 100 mmol/L (96-109); Chol/HDL Ratio 2.04 Ratio; Globulin 2.2 g/dL (1.6-3.3); Glucose 117 mg/dL (70-110); LDL Cholesterol,Calculated 60.3 mg/dL (0.0-131.0); Potassium 4.8 mmol/L (3.5-5.5); Sodium 134 mmol/L (135-145); Total Bilirubin 0.5 mg/dL (0.3-1.2); Total Protein 6.4 g/dL (6.2-8.2); VLDL Calculation 15.04 mg/dL (5.00-40.00)
== END | disposition home or self-care (01) ==
LOC: LABWHC1 11:16
PROVIDERS: ATTEND Family Medicine
DX: Z00.00 Encounter for general adult medical examination without abnormal findings (principal); E78.5 Hyperlipidemia, unspecified
CPT/HCPCS: 36415; 80053; 80061; 82306; 83036; 84443; 84630; 85025

== ENCOUNTER → 2024-07-02 | Outpatient (CLI) | payer MEDICARE ==
--- NOTE | 2024-07-02 10:58 | US ---
EXAMINATION TYPE: US thyroid st tissue head/neck DATE OF EXAM: 07/02/2024 COMPARISON: Multiple thyroid ultrasounds with most recent 08/24/2023 CLINICAL INDICATION: Female, 74 years old with history of E04.1 NONTOXIC SINGLE THYROID NODULE; f/u, h/o bilat fna's TECHNIQUE: Grayscale and color Doppler imaging of the thyroid gland. FINDINGS: GLAND SIZE: Right Lobe: 4.5 x 2.1 x 2.7 cm Overall Parenchyma: heterogeneous Left Lobe: 4.9 x 1.2 x 1.5 cm Overall Parenchyma: heterogeneous Isthmus Thickness: 0.2 cm NODULES RIGHT: # of nodules measured on right: 1 1. 3.2 X 2.5 x 2.4 cm, mid, solid or almost completely solid, hypoechoic nodule, which is wider lion n tall, with smooth margins, without echogenic foci. TR 4. Prior size: 3.5 x 2.1 x 2.2 cm LEFT: # of nodules measured on left: 1 1. 1.2 X 1.0 x 0.7 cm, mid, solid or almost completely solid, hypoechoic nodule, which is wider lion n tall, with smooth margins, without echogenic foci. TR 4. Prior size: 1.6 x 0.9 x 1.2 cm ISTHMUS: # of nodules measured in the isthmus: 1 1. 1.1 X 1.0 x 0.5 cm solid or almost completely solid, hypoechoic nodule, which is wider than tall , with margins, without echogenic foci. TR 4. Prior size: 1.3 x 0.5 x 0.9 cm Bilateral neck scanned, no evidence of lymphadenopathy. IMPRESSION: Redemonstration of multiple TR4 thyroid nodules which are marginally decreased in size from prior exa m. Previous history of FNA of these nodules. The need for biopsy but should be determined clinically. [facility], , 07/02/2024 10:56 AM
== END | disposition home or self-care (01) ==
LOC: RADUSWWP 10:26
PROVIDERS: ATTEND Otolaryngology
DX: E04.2 Nontoxic multinodular goiter (principal)
CPT/HCPCS: 76536

== ENCOUNTER 2024-08-13 12:16 | Emergency (ER) | payer MEDICARE ==
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
[2024-08-13 14:04] VITALS: BP 123/82; PULSE 99; RESP 14; TEMP 97.8
== END 2024-08-13 14:06 | disposition home or self-care (01) ==
LOC: EC 12:16
DX: M54.9 Dorsalgia, unspecified (principal); M54.2 Cervicalgia; F17.200 Nicotine dependence, unspecified, uncomplicated; Z88.2 Allergy status to sulfonamides; Z88.5 Allergy status to narcotic agent; Z91.041 Radiographic dye allergy status; V43.52XA Car driver injured in collision with other type car in traffic accident, initial encounter; Y92.410 Unspecified street and highway as the place of occurrence of the external cause
CPT/HCPCS: 70450; 71046; 72125; 99285

== ENCOUNTER 2024-10-07 00:33 | Emergency (ER) | payer MEDICARE ==
[2024-10-07 00:57] VITALS: RESP 18; TEMP 97.9
[2024-10-07] MEDS: diphenhydrAMINE 50 MG/ML 1 ML VIAL IVP STA (01:30)
[2024-10-07] MEDS: FAMOTIDINE 20 MG/2 ML VIAL IV STA (01:31)
--- NOTE | 2024-10-07 01:32 | ED ---
General Adult HPI - General Chief complaint: Allergic Reaction Stated complaint: allergic reaction Time Seen by Provider: 10/07/24 00:46 Source: patient, RN notes reviewed Mode of arrival: ambulatory Limitations: no limitations - History of Present Illness Initial comments: 74 year old female presents to the emergency department for potential allergic r eaction. Patient notes that she has been experiencing symptoms for multiple days. She was seen in urgent care for this and prescribed a steroid. She notes that she has been taking this as prescribed. She notes taking a Benadryl yesterday but has not had anything today. Patient is concerned as she feels that it is progressing to her cheeks and forehead. Denies any shortness of breath. Denies any tongue swelling although she does note that she feels her tongue appears more red than usual. She denies any recent fever, chills, recent illness. She does note recently changing her laundry detergent. - Related Data Home Medications Medication Instructions Recorded Confirmed Atorvastatin [Lipitor] 20 mg PO DAILY@1800 07/27/20 08/12/20 Previous Rx's Medication Instructions Recorded Apixaban [Eliquis] 5 mg PO BID 30 Days #60 tab 07/28/20 Metoprolol Succinate (ER) [Toprol 50 mg PO DAILY@1800 30 Days #30 07/28/20 XL] tab.er.24h Allergies Allergy/AdvReac Type Severity Reaction Status Date / Time codeine Allergy Rash/Hives Verified 10/07/24 00:57 Iodinated Contrast Media Allergy Rash/Hives Verified 10/07/24 00:57 [Iodinated Contrast Media - IV Dye] Sulfa (Sulfonamide Allergy Unknown Verified 10/07/24 00:57 Antibiotics) Review of Systems ROS Statement: Those systems with pertinent positive or pertinent negative responses have been documented in the HPI. ROS Other: All systems not noted in ROS Statement are negative. Past Medical History Past Medical History: Atrial Fibrillation, Hyperlipidemia, Thyroid Disorder Additional Past Medical History / Comment(s): "extra heart beat", irregular bowel movements, hemorrhoids, "abdominal pain in ovary area" History of Any Multi-Drug Resistant Organisms: None Reported Past Surgical History: Back Surgery, Breast Surgery, Tonsillectomy Additional Past Surgical History / Comment(s): yeyo breast biopsies, 'cysts removed from both breasts", sinus surgery. scheduled for thyroid biopsy May 2019 Past Anesthesia/Blood Transfusion Reactions: No Reported Reaction Past Psychological History: Anxiety Smoking Status: Current every day smoker Past Alcohol Use History: Occasional Past Drug Use History: None Reported - Past Family History Mother Family Medical History: Cancer Sister(s) Family Medical History: Deep Vein Thrombosis (DVT), Pulmonary Embolus General Exam Limitations: no limitations General appearance: alert, anxious Head exam: Present: atraumatic, normocephalic, normal inspection Eye exam: Present: normal appearance, PERRL, EOMI. Absent: scleral icterus, conjunctival injection, periorbital swelling ENT exam: Present: normal exam, normal oropharynx, mucous membranes moist, other (No oral edema, airway is patent) Neck exam: Present: normal inspection. Absent: tenderness, meningismus, lymphadenopathy Respiratory exam: Present: normal lung sounds bilaterally. Absent: respiratory distress, wheezes, rales, rhonchi, stridor Cardiovascular Exam: Present: regular rate, normal rhythm, normal heart sounds. Absent: systolic murmur, diastolic murmur, rubs, gallop, clicks Extremities exam: Present: normal inspection, full ROM, normal capillary refill. Absent: tenderness, pedal edema, joint swelling, calf tenderness Back exam: Present: normal inspection Neurological exam: Present: alert, oriented X3 Psychiatric exam: Present: normal affect, normal mood Skin exam: Present: warm, dry, intact, urticaria (Urticaria to bilateral upper thighs, no visible rash to the face.). Absent: normal color Course Vital Signs 10/07/24 10/07/24 10/07/24 00:50 01:20 04:05 Temperature 97.9 F Pulse Rate 101 H 96 86 Respiratory 18 18 18 Rate Blood Pressure 129/67 135/77 122/77 O2 Sat by Pulse 98 97 97 Oximetry Medical Decision Making - Medical Decision Making Was pt. sent in by a medical professional or institution (, [place], [facility] PEELER, urgent care, hospital, or snf...) When possible be specific @ -No Did you speak to anyone other than the patient for history (EMS, parent, family, police, friend...)? What history was obtained from this source @ -Patient's provided some history of his patient Did you review nursing and triage notes (agree or disagree)? Why? @ -I reviewed and agree with nursing and triage notes Were old charts reviewed (outside hosp., previous admission, EMS record, old EK G, old radiological studies, urgent care reports/EKG's, snf records)? Report findings @ -No old charts were reviewed Differential Diagnosis (chest pain, altered mental status, abdominal pain women, abdominal pain men, vaginal bleeding, weakness, fever, dyspnea, syncope, headache, dizziness, GI bleed, back pain, seizure, CVA, palpatations, mental health, musculoskeletal)? @ -Allergic reaction, urticaria, anaphylaxis, contact dermatitis, atopic dermatitis, this list is not all inclusive EKG interpreted by me (3pts min.). @ -None X-rays interpreted by me (1pt min.). @ -None done CT interpreted by me (1pt min.). @ -None done U/S interpreted by me (1pt. min.). @ -None done What testing was considered but not performed or refused? (CT, X-rays, U/S, labs)? Why? @ -None What meds were considered but not given or refused? Why? @ -None Did you discuss the management of the patient with other professionals (professionals i.e. , PA, SHRIMP PEELER, lab, RT, psych nurse, social psychologist, precision filer hand, teacher, light armored vehicle officer, oil field caser)? Give summary @ -No Was smoking cessation discussed for >3mins.? @ -No Was critical care preformed (if so, how long)? @ -No Were there social determinants of health that impacted care today? How? (Homelessness, low income, unemployed, alcoholism, drug addiction, transportation, low edu. Level, literacy, decrease access to med. care, intermediate, rehab)? @ -No Was there de-escalation of care discussed even if they declined (Discuss DNR or withdrawal of care, Hospice)? DNR status @ -No What co-morbidities impacted this encounter? (DM, HTN, Smoking, COPD, CAD, Cancer, CVA, ARF, Chemo, Hep., AIDS, mental health diagnosis, sleep apnea, morbid obesity)? @ -None Was patient admitted / discharged? Hospital course, mention meds given and route, prescriptions, significant lab abnormalities, going to OR and other pertinent info. @ -Discharge. Patient presented the emergency department for potential allergic reaction. He was established with nursing staff and patient was administered IV steroids and Benadryl and Pepcid for allergic reaction. Basic laboratory studies were obtained including CBC and CMP. There is mild leukocytosis at 12 which is likely reactive to the patient's recent steroid use. CMP is nonactionable. Patient is feeling improved after the medication regiment. I discussed to continue with her medications that she was prescribed for home and utilize an antihistamine for symptoms in addition to the steroid. She is understanding agreeable to this. Patient stable at time of discharge. Case discussed with Dr. Bray. Undiagnosed new problem with uncertain prognosis? @ -No Drug Therapy requiring intensive monitoring for toxicity (Heparin, Nitro, Insulin, Cardizem)? @ -No Were any procedures done? @ -No Diagnosis/symptom? @ -Urticaria Acute, or Chronic, or Acute on Chronic? @ -Acute Uncomplicated (without systemic symptoms) or Complicated (systemic symptoms)? @ -Uncomplicated Side effects of treatment? @ -No Exacerbation, Progression, or Severe Exacerbation? @ -No Poses a threat to life or bodily function? How? (Chest pain, [place], [place], pneumonia, PE, COPD, DKA, ARF, appy, cholecystitis, CVA, Diverticulitis, Homicidal, Suicidal, threat to staff... and all critical care pts) @ -No - Lab Data Result diagrams: 10/07/24 01:19 10/07/24 01:19 Lab Results 10/07/24 10/07/24 Range/Units 01:19 01:19 WBC 12.11 H (4.50-10.00) 10*3/uL RBC 4.77 (4.10-5.20) 10*6/uL Hgb 15.1 H (12.0-15.0) g/dL Hct 43.6 (37.2-46.3) % MCV 91.4 (80.0-97.0) fL MCH 31.7 (27.0-32.0) pg MCHC 34.6 (32.0-37.0) g/dL Plt Count 251 (140-440) 10*3/uL MPV 10.0 (9.5-12.2) fL Immature Gran % (Auto) 0.3 % Neutrophils % 66.4 % Lymphocytes % 26.1 % Monocytes % 6.8 % Eosinophils % 0.3 % Basophils % 0.1 % Immature Gran # 0.04 (0.00-0.04) 10*3/uL Neutrophils # 8.04 H (1.80-7.70) 10*3/uL Lymphocytes # 3.16 (0.90-5.00) 10*3/uL Monocytes # 0.82 (0.20-1.00) 10*3/uL Eosinophils # 0.04 (0.04-0.35) 10*3/uL Basophils # 0.01 (0.00-0.10) 10*3/uL Sodium 136 L (137-145) mmol/L Potassium 4.2 (3.5-5.1) mmol/L Chloride 105 (98-107) mmol/L Carbon Dioxide 22 (22-30) mmol/L Anion Gap 9 mmol/L BUN 20 H (7-17) mg/dL Creatinine 0.53 (0.52-1.04) mg/dL Est GFR (CKD-EPI)AfAm >90 (>60 ml/min/1.73 sqM) Est GFR (CKD-EPI)NonAf >90 (>60 ml/min/1.73 sqM) Glucose 110 H (74-99) mg/dL Calcium 9.7 (8.4-10.2) mg/dL Total Bilirubin 0.4 (0.2-1.3) mg/dL AST 20 (14-36) U/L ALT 16 (4-34) U/L Alkaline Phosphatase 62 (38-126) U/L Total Protein 6.6 (6.3-8.2) g/dL Albumin 4.2 (3.5-5.0) g/dL Disposition Clinical Impression: Allergic reaction Disposition: HOME SELF-CARE Condition: Stable Instructions (If sedation given, give patient instructions): General Allergic Reaction (ED) Additional Instructions: Please follow-up with your doctor. Return to the emergency department for new or worsening symptoms. Is patient prescribed a controlled substance at d/c from ED?: No Referrals: Mark Saul MD [Primary Care Provider] - 1-2 days
[2024-10-07] MEDS: methylPREDNISolone SOD SUCCI 125 MG/2 ML VIAL IV STA (01:33)
[2024-10-07 01:35] LABS: Basophils # (A) 0.01 10*3/uL (0.00-0.10); Basophils % (A) 0.1 %; Eosinophils # (A) 0.04 10*3/uL (0.04-0.35); Eosinophils % (A) 0.3 %; HCT 43.6 % (37.2-46.3); HGB 15.1 g/dL (12.0-15.0); Lymphocytes # (A) 3.16 10*3/uL (0.90-5.00); Lymphocytes % (A) 26.1 %; MCH 31.7 pg (27.0-32.0); MCHC 34.6 g/dL (32.0-37.0); MCV 91.4 fL (80.0-97.0); Monocytes # (A) 0.82 10*3/uL (0.20-1.00); Monocytes % (A) 6.8 %; Neutrophils # (A) 8.04 10*3/uL (1.80-7.70); Neutrophils % (A) 66.4 %; Platelet Count 251 10*3/uL (140-440); RBC 4.77 10*6/uL (4.10-5.20); RDW 13.0 % (11.5-14.5); WBC 12.11 10*3/uL (4.50-10.00)
[2024-10-07 02:01] LABS: ALT 16 U/L (4-34); AST 20 U/L (14-36); African American GFR (CKD) >90 (>60 ml/min/1.73 sqM); Albumin 4.2 g/dL (3.5-5.0); Alkaline Phosphatase 62 U/L (38-126); Anion Gap 9 mmol/L; Blood Urea Nitrogen 20 mg/dL (7-17); Calcium 9.7 mg/dL (8.4-10.2); Carbon Dioxide 22 mmol/L (22-30); Chloride 105 mmol/L (98-107); Glucose 110 mg/dL (74-99); Non-African American GFR(CKD) >90 (>60 ml/min/1.73 sqM); Potassium 4.2 mmol/L (3.5-5.1); Sodium 136 mmol/L (137-145); Total Protein 6.6 g/dL (6.3-8.2)
[2024-10-07 04:11] VITALS: BP 122/77; PULSE 86
== END 2024-10-07 04:14 | disposition home or self-care (01) ==
LOC: EC 00:33
DX: L50.9 Urticaria, unspecified (principal); F17.200 Nicotine dependence, unspecified, uncomplicated; Z88.5 Allergy status to narcotic agent; Z88.2 Allergy status to sulfonamides; Z91.041 Radiographic dye allergy status
CPT/HCPCS: 36415; 80053; 85025; 99283; 96374; 96375 ×2; J1200; J2919; J1308